=== PATIENT | male | born 1935 | race Hispanic/Latino ===

== ENCOUNTER 2016-12-02 09:46 | Inpatient (IN) | payer MEDICARE ==
[2016-12-02] MEDS ORDERED: DILAUDID IV ONE (10:23)
[2016-12-02] MEDS ORDERED: ZOFRAN IV ONE (10:23)
--- NOTE | 2016-12-02 11:20 | XRay Report ---
RIGHT HIP RADIOGRAPHS: INDICATION: Right hip pain. COMPARISON: None similar. FINDINGS: AP pelvic and attempted frog-leg projections of the right hip demonstrate right lesser trochanter fracture avulsion, displaced medially by approximately 1.5 cm. A nondisplaced right intertrochanteric fracture also noted. Osteopenia/osteoporosis. Femoral heads though well-located within the acetabulum bilaterally. Remainder pelvic articulation intact as also imaged lower lumbar spine. Nonobstructive bowel gas pattern. Few atherosclerotic calcifications. EKG lead. CONCLUSION: Acute right hip intertrochanteric fracture with mildly displaced and possibly comminuted lesser trochanteric fracture, as described above. Thank you for the opportunity to participate in this patient's care.
[2016-12-02 11:37] LABS: Basophils % (Auto) 0.6 % (0.0-1.8); Eosinophils % (Auto) 1.1 % (0.0-4.3); Hematocrit 39.1 % (35.5-45.6); Mean Corpuscular HGB Conc 33 % (32-34); Mean Corpuscular Hemoglobin 32 pg (28-32); Mean Corpuscular Volume 96 fl (84-94); Platelet Count 184 K/mm3 (140-440); Red Blood Count 4.08 M/mm3 (3.65-5.03); Red Cell Distribution Width 14.5 % (13.2-15.2); White Blood Count 9.7 K/mm3 (4.5-11.0)
[2016-12-02 11:47] LABS: INR 0.97 (0.87-1.13)
[2016-12-02 11:48] LABS: Partial Thromboplastin Time 24.7 Sec. (24.2-36.6)
[2016-12-02 11:50] LABS: BUN/Creatinine Ratio 21.05; Calcium 9.2 mg/dL (8.4-10.2); Chloride 103.9 mmol/L (98-107)
--- NOTE | 2016-12-02 11:57 | Emergency Department Report ---
ED Fall HPI - General Chief Complaint: Fall Stated Complaint: GROUND LEVEL FALL Time Seen by Provider: 12/02/16 10:17 Source: patient, EMS Mode of arrival: Stretcher Limitations: No Limitations - History of Present Illness Initial Comments: 81-year-old male with a past medical history multiple medical problems presents to the hospital status post fall. Patient tripped over his dog and fell. Complains of 10/10 right hip pain worse with palpation and movement. No alleviating factors reported. Accu-Chek 151 in route to the hospital. Patient denies head injury or LOC. - Related Data Home Medications Medication Instructions Recorded Confirmed Last Taken Carvedilol [Coreg] 6.25 mg PO BID 12/02/16 12/02/16 Unknown Isosorb Dinit/Hydralazine HCl 1 each PO DAILY 12/02/16 12/02/16 Unknown [Bidil Tablet] Ranitidine HCl [Acid Reel Man] 150 mg PO DAILY 12/02/16 12/02/16 Unknown Tamsulosin [Flomax] 0.4 mg PO QDAY 12/02/16 12/02/16 Unknown amLODIPine [Norvasc] 1 tab PO DAILY 12/02/16 12/02/16 Unknown Previous Rx's Medication Instructions Recorded Last Taken Type Clopidogrel [Plavix] 75 mg PO QDAY #30 tablet 08/28/16 Unknown Rx Simvastatin [Zocor TAB] 20 mg PO QHS #30 tablet 08/28/16 Unknown Rx glipiZIDE [glipiZIDE ER] 5 mg PO QAM #30 tab.er.24 08/28/16 Unknown Rx predniSONE [Deltasone] 5 mg PO QDAY tablet 08/28/16 Unknown Rx Allergies Allergy/AdvReac Type Severity Reaction Status Date / Time aspirin Allergy Nausea Verified 04/09/15 06:55 morphine Allergy hallucinati Verified 04/09/15 06:57 ons ED Review of Systems ROS: Stated complaint: GROUND LEVEL FALL Other details as noted in HPI Comment: All other systems reviewed and negative Other: Constitutional: No fevers chills Eyes: No eye pain visual changes or discharge ENT: Hard of hearing Neck: Denies pain Respiratory: Denies cough wheezing shortness of breath Cardiovascular: Denies chest pain, palpitations, syncope GI: Denies abdominal pain, nausea, vomiting, diarrhea : Denies dysuria Musculoskeletal: Per HPI Skin: Denies rash, lesions, erythema Neurologic: Chronic CVA deficit Psychiatric: Denies suicidal ideation, hallucinations ED Past Medical Hx - Past Medical History Previous Medical History?: Yes Hx Hypertension: Yes Hx CVA: Yes Hx Heart Attack/AMI: Yes Hx Diabetes: Yes Hx GERD: Yes Hx Renal Disease: Yes (stage 2 CKD) Hx Arthritis: Yes Hx COPD: Yes - Surgical History Past Surgical History?: Yes Hx Appendectomy: Yes (at age 16) - Social History Smoking Status: Former Smoker Substance Use Type: Prescribed - Medications Home Medications: Home Medications Medication Instructions Recorded Confirmed Last Taken Type Clopidogrel [Plavix] 75 mg PO QDAY #30 tablet 08/28/16 12/02/16 Unknown Rx Simvastatin [Zocor TAB] 20 mg PO QHS #30 tablet 08/28/16 12/02/16 Unknown Rx glipiZIDE [glipiZIDE ER] 5 mg PO QAM #30 tab.er.24 08/28/16 12/02/16 Unknown Rx predniSONE [Deltasone] 5 mg PO QDAY tablet 08/28/16 12/02/16 Unknown Rx Carvedilol [Coreg] 6.25 mg PO BID 12/02/16 12/02/16 Unknown History Isosorb Dinit/Hydralazine HCl 1 each PO DAILY 12/02/16 12/02/16 Unknown History [Bidil Tablet] Ranitidine HCl [Acid Reel Man] 150 mg PO DAILY 12/02/16 12/02/16 Unknown History Tamsulosin [Flomax] 0.4 mg PO QDAY 12/02/16 12/02/16 Unknown History amLODIPine [Norvasc] 1 tab PO DAILY 12/02/16 12/02/16 Unknown History ED Physical Exam - General Limitations: Physical Limitation - Other Other exam information: General: No limitations, patient is alert in no acute distress Head exam: Atraumatic, normocephalic Eyes exam: Normal appearance ENT: Moist mucous membrane, normal oropharynx Neck exam: Normal inspection, full range of motion Respiratory exam: Clear to auscultation bilateral, no wheezes, rales, crackles Cardiovascular: Normal rate and rhythm, normal heart sounds Abdomen: Soft, nondistended, and nontender, with normal bowel sounds, no rebound, or guarding Extremity: Right leg shortened and tender at the hip. 2+ DP pulse Back: Normal Inspection, full range of motion, no tenderness Neurologic: Alert, oriented x3, now slurred speech. Psychiatric: normal affect, normal mood Skin: Warm, dry, intact ED Course Vital Signs 12/02/16 12/02/16 12/02/16 09:53 10:01 10:03 Temperature 98.5 F Pulse Rate 65 60 Respiratory 21 20 Rate Blood Pressure 147/59 124/58 Blood Pressure [Left] O2 Sat by Pulse 97 96 95 Oximetry 12/02/16 12/02/16 12/02/16 10:30 10:33 10:34 Temperature Pulse Rate 63 60 Respiratory 15 20 16 Rate Blood Pressure Blood Pressure [Left] O2 Sat by Pulse 94 95 Oximetry 12/02/16 12/02/16 12/02/16 11:01 11:03 12:01 Temperature Pulse Rate 64 63 Respiratory 12 16 14 Rate Blood Pressure 149/68 128/63 Blood Pressure [Left] O2 Sat by Pulse 99 98 Oximetry 12/02/16 12:47 Temperature 98.5 F Pulse Rate 63 Respiratory 14 Rate Blood Pressure Blood Pressure 120/63 [Left] O2 Sat by Pulse 98 Oximetry - Reevaluation(s) Reevaluation #1: 12/02/16 12:38 Pain improved after Dilaudid and Zofran. - Consultations Consultation #1: 12/02/16 12:[address] Fenton (ortho) will be placed still scheduled for Wednesday12/02/16 12:13 ED Medical Decision Making - Lab Data Result diagrams: 12/02/16 11:24 12/02/16 11:24 Lab Results 12/02/16 12/02/16 12/02/16 Range/Units 11:24 11:24 11:24 WBC 9.7 (4.5-11.0) K/mm3 RBC 4.08 (3.65-5.03) M/mm3 Hgb 13.0 (11.8-15.2) gm/dl Hct 39.1 (35.5-45.6) % MCV 96 H (84-94) fl MCH 32 (28-32) pg MCHC 33 (32-34) % RDW 14.5 (13.2-15.2) % Plt Count 184 (140-440) K/mm3 Lymph % (Auto) 23.2 (13.4-35.0) % [place] % (Auto) 6.2 (0.0-7.3) % Eos % (Auto) 1.1 (0.0-4.3) % Baso % (Auto) 0.6 (0.0-1.8) % Lymph # 2.2 (1.2-5.4) K/mm3 [place] # 0.6 (0.0-0.8) K/mm3 Eos # 0.1 (0.0-0.4) K/mm3 Baso # 0.1 (0.0-0.1) K/mm3 Seg Neutrophils % 68.9 (40.0-70.0) % Seg Neutrophils # 6.7 (1.8-7.7) K/mm3 PT 12.8 (12.2-14.9) Sec. INR 0.97 (0.87-1.13) APTT 24.7 (24.2-36.6) Sec. Sodium 145 (137-145) mmol/L Potassium 6.0 H (3.6-5.0) mmol/L Chloride 103.9 (98-107) mmol/L Carbon Dioxide 30 (22-30) mmol/L Anion Gap 17 mmol/L BUN 40 H (9-20) mg/dL Creatinine 1.9 H (0.8-1.5) mg/dL Estimated GFR 34 ml/min BUN/Creatinine Ratio 21.05 % Glucose 151 H (75-100) mg/dL Calcium 9.2 (8.4-10.2) mg/dL - EKG Data -: EKG Interpreted by Me (nsr 72, bifasciular block, rbb, lpfb) - Radiology Data Radiology results: report reviewed (right hip x-ray: Right intertrochanteric fracture) - Medical Decision Making Cocktail provided for hyperkalemia. Orthopedic and admitting physician and informed - Differential Diagnosis fracture, contusion, sprain Critical Care Time: No Critical care attestation.: If time is entered above; I have spent that time in minutes in the direct care of this critically ill patient, excluding procedure time. ED Disposition Clinical Impression: Hyperkalemia Closed right hip fracture Qualifiers: Encounter type: initial encounter Qualified Code(s): S72.001A - Fracture of unspecified part of neck of right femur, initial encounter for closed fracture Chronic kidney disease Qualifiers: Chronic kidney disease stage: unspecified stage Qualified Code(s): N18.9 - Chronic kidney disease, unspecified Disposition: OP ADMITTED IP TO THIS HOSP Is pt being admited?: Yes Condition: Stable Time of Disposition: 12:20 (Dr egan/hosp)
[2016-12-02] MEDS ORDERED: D50W (25GM) IV ONE (12:01)
[2016-12-02] MEDS ORDERED: SODIUM BICARBONATE IV ONE ×2 (12:01→13:00)
[2016-12-02] MEDS ORDERED: KIONEX PO ONE (12:01)
[2016-12-02] MEDS ORDERED: PROVENTIL IH ONE (12:02)
[2016-12-02] MEDS ORDERED: NACL 0.9% 1000 ML 1,000 ML IV ONE (12:02)
[2016-12-02] MEDS ORDERED: LASIX IV ONE (12:02)
--- NOTE | 2016-12-02 12:34 | Admit Criteria Form ---
Admission Criteria Documentation: MUSCULOSKELETAL DISEASE GRG Clinical Indications for Admission to Inpatient Care (Place 'X' for any and all applicable criteria): Hospital admission is needed for appropriate care of the patient because of ANY ONE of the following: [X ]I. Fracture, dislocation, or other musculoskeletal injury requiring inpatient care(medical) as indicated by ANY ONE of the following(4)(5)(6)(7) [ ]a) Vertebral fracture requiring observation for instability or neurologic compromise (8) [ ]b) Compartment syndrome (proven or cannot be ruled out during observation level of care) (9) [ ]c) Limb-threatening injury [ ]d) Major injury requiring inpatient stabilization such as traction initiation or external fixation before internal fixation or closure of complex or open fracture [ X]e) Major injury requiring inpatient treatment after emergency or observation level care (as appropriate) [ ]f) Severe pain requiring acute inpatient management [ ]II. Newly diagnosed or suspected bone, joint, or orthopedic device infection (e.g., osteomyelitis, septic arthritis) needing ANY ONE of the following(1)(2)(3) [ ]a) IV antibiotics that cannot be initiated in other than inpatient setting (e.g., patient too unstable or home infusion not available) [ ]b) Device removal or replacement [ ]c) Bone or soft tissue debridement [ ]d) Joint drainage (drain placement or repetitive aspirations) [ ]III. Severe rheumatologic disease (e.g., systemic lupus erythematosus, rheumatoid arthritis) with complications or comorbidities (Also use Optimal Recovery Care Criteria or General Recovery Criteria as appropriate on the basis of predominant condition), including ANY ONE of the following(10 )(11)(12)(13) [ ]a) Severe infection (e.g., NURSE CASE MANAGEMENT infection, sepsis) (14) [ ]b) Respiratory complications, including ANY ONE of the following: [ ]i) Pleural effusion with respiratory compromise [ ]ii) Pulmonary hypertension with congestive failure [ ]iii) Respiratory failure [ ]iv) Pulmonary hemorrhage (15) [ ]c) Hematologic disease, including ANY ONE of the following: [ ]i) Coagulopathy with bleeding [ ]ii) Thrombosis with hypercoagulable state [ ]iii) Thrombotic thrombocytopenic purpura [ ]d) Cerebritis with seizures, psychosis, or other severe abnormalities [ ]e) Vertebral destruction with monitoring needed for cervical myelopathy& possible respiratory compromise [ ]f) Exacerbation that requires inpatient treatment (e.g., intravenous immunosuppression) (16) [ ]g) Acute renal failure [ ]IV. Severe vasculitis with complications or comorbidities (Also use Optimal Recovery Care Criteria or General Recovery Criteria as appropriate on the basis of predominant condition), including ANY ONE of the following(11)(12)(17)(18)(19)(20) [ ]a) NURSE CASE MANAGEMENT vasculitis with seizures, psychosis, or other severe abnormalities (22) [ ]b) Renal failure (16) [ ]c) Pulmonary hemorrhage (15) [ ]d) Cerebral infarction [ ]e) Gastrointestinal ischemia [ ]f) Gangrene or threatened amputation [ ]g) Exacerbation that requires inpatient treatment (e.g., intravenous immunosuppression) (19)(21) [ ]V. Severe myopathy as indicated by ANY ONE of the following (28)(29) [ ]a) New onset of airway compromise or inability to swallow [ ]b) Respiratory deterioration with observation needed for impending respiratory failure [ ]c) Exacerbation that requires inpatient treatment (e.g., intravenous immunosuppression) [ ]. Severe gout (crystal arthropathy) as indicated by ANY ONE of the following (23)(24) [ ]a) Severe pain requiring acute inpatient management [ ]b) Exacerbation that requires inpatient treatment (e.g., intravenous treatment) [ ]VII.Rhabdomyolysis and ANY ONE of the following (25)(26)(27) [ ]a) Acute renal failure [ ]b) Need for intravenous hydration after emergency or observation level care (as appropriate) [ ]c) Inability to maintain oral hydration [ ]d) Change in mental status [ ]e) Electrolyte abnormality that remains after emergency or observation level care (as appropriate) [ ]VIII Post amputation complication, as indicated by ANY ONE of the following [ ]a) Infection [ ]b) Dehiscence [ ]c) Myodesis failure [ ]IX. Severe pain requiring acute inpatient management as indicated by ALL of the following (30)(31)(32) [ ]a) Continuous or frequent (e.g., every 2 to 4 hrs) parenteral analgesics required [A] [ ]b) Rapid improvement expected from treatment or acute intervention ( e.g., surgery, anesthesia procedure[B] [ ]X. Musculoskeletal Disease and ALL of the following: [ ]a) Symptom or finding for which emergency and observation care have failed or are not considered appropriate (Use General Criteria: Observation Care as appropriate) [ ]b) Presence of ANY ONE of the following [ ]i) A General Admission Criteria [ ]ii) A Pediatric General Admission Criteria The original [facility] content created by [facility] has been revised. The portions of the content which have been revised are identified through the use of italic text or in bold, and [facility] has neither reviewed nor approved the modified material. All other unmodified content is copyright [facility]. Please see references footnoted in the original [facility] edition 2016 Admission Criteria Met: Yes
[2016-12-02] MEDS ORDERED: CALCIUM GLUCONATE 1,000 MG in NACL 0.9% 100 ML IV ONE (13:01)
[2016-12-02] MEDS ORDERED: ZOFRAN IV PRN ×2 (13:10→13:12)
[2016-12-02] MEDS ORDERED: TYLENOL PO PRN (13:10)
[2016-12-02] MEDS ORDERED: MILK OF MAGNESIA PO PRN (13:10)
[2016-12-02] MEDS ORDERED: DULCOLAX PR PRN (13:10)
[2016-12-02] MEDS ORDERED: NON-FORMULARY (Ranitidine Hcl [Acid Reducer] 150 MG) PO SCH (13:15)
--- NOTE | 2016-12-02 13:35 | Event Note ---
Date: 12/02/16 See H/p in reports Rt hip Fx T2DM HTN CAD BPH Obesity
--- NOTE | 2016-12-02 14:19 | History and Physical Report ---
CHIEF COMPLAINT: Ground level fall and severe right hip pain this morning. HISTORY OF PRESENT ILLNESS: An 81-year-old male, obese, with history of hypertension, noninsulin dependent diabetes, BPH, gastroesophageal reflux disease, coronary artery disease, comes to the ER for fall. The patient apparently tripped over his dog and fell down and complains of 10/10 pain in the right hip, especially more with even slight movement. Denies any head injury or loss of consciousness. No syncope. No chest pain. PAST MEDICAL HISTORY: Significant for hypertension, coronary artery disease, gastroesophageal reflux disease, BPH, hypertension, type 2 diabetes. CURRENT MEDICATIONS: Coreg 6.25 b.i.d., BiDil 1 tablet daily, ranitidine 150 mg p.o. b.i.d., Flomax 0.4 p.o. daily, amlodipine 10 mg p.o. daily, Plavix 75 mg p.o. daily, simvastatin 20 mg p.o. daily, glipizide 5 mg p.o. daily, prednisone 5 mg p.o. daily. ADDITIONAL PAST MEDICAL HISTORY: Cerebrovascular accident, arthritis, COPD, and chronic kidney disease. PAST SURGICAL HISTORY: Appendectomy. SOCIAL HISTORY: Former smoker, stopped smoking a couple of years ago. REVIEW OF SYSTEMS: Significant for severe right hip pain, especially with even slight movement, pain is like 10/10 and decreased range of motion. Otherwise, review of systems is essentially negative. A 14-point review of systems done. PHYSICAL EXAMINATION: GENERAL: Elderly male lying in bed, in slight pain. VITAL SIGNS: Temperature is 98.5, pulse is 65, respirations are 21, blood pressure is 147/59, and sats are 97%. HEENT: Unremarkable. Pupils equal and reactive. NECK: Supple, no lymphadenopathy, no thyromegaly. LUNGS: Clear to auscultation and percussion. Good air entry. CARDIOVASCULAR: S1, S2 heard. No gallop, no murmur, no rub. Apical impulse in left fifth intercostal space and midclavicular line. ABDOMEN: Soft and benign. No hepatosplenomegaly. No guarding, no rigidity. Hernial orifices are normal. EXTREMITIES: Good pedal pulses. No pedal edema. Decreased range of motion of the right hip. Abducted and externally rotated. CENTRAL NERVOUS SYSTEM: Alert and oriented x 4, nonfocal exam. LABORATORY DATA: White count is 9700, hemoglobin is 13, hematocrit is 39.1, platelet count is 184,000. Sodium is 145, potassium is 6.0, bicarbonate is 30, BUN and creatinine is 40 and 1.9, glucose is 151, calcium is 9.2. Hip x-ray shows a right intertrochanteric fracture. EKG: There is a rhythm strip showing normal sinus rhythm, with heart rate of about 75 per minute. ASSESSMENT AND PLAN: 1. Closed right hip fracture, needs open reduction and internal fixation. Dr. Morales consulted. We will do the surgery once cleared on Wednesday, which is 12/04/2016. 2. Hypertension. Continue Coreg 6.25 q. 12 and also amlodipine 5 mg p.o. daily. 3. Hyperlipidemia. Continue simvastatin 20 mg p.o. daily, we will hold for the time being. 4. Coronary artery disease. We will hold the Plavix because of the impending surgery. 5. Type 2 diabetes. We will hold the glipizide, but do coverage. The patient will be n.p.o. from midnight tomorrow. 6. Gastroesophageal reflux disease. Continue ranitidine 150 p.o. b.i.d. 7. Benign prostatic hypertrophy. Continue tamsulosin 0.4 mg p.o. daily. 8. Deep venous thrombosis prophylaxis, Lovenox 40 mg subcutaneous daily. 9. Hyperkalemia, treated in the ER. We will recheck the potassium. The patient was given hyperkalemia cocktail. JOB# [id number] KERRY/NTS
[2016-12-02] MEDS: DILAUDID IV PRN ×2 (14:26→19:21)
--- NOTE | 2016-12-02 17:00 | Consultation ---
History of Present Illness - HPI Consult date: 12/02/16 Consult reason: fracture (Intertrochanteric fracture hip) Medications and Allergies Allergies Allergy/AdvReac Type Severity Reaction Status Date / Time aspirin Allergy Nausea Verified 04/09/15 06:55 morphine Allergy hallucinati Verified 04/09/15 06:57 ons Home Medications Medication Instructions Recorded Confirmed Last Taken Type Clopidogrel [Plavix] 75 mg PO QDAY #30 tablet 08/28/16 12/02/16 Unknown Rx Simvastatin [Zocor TAB] 20 mg PO QHS #30 tablet 08/28/16 12/02/16 Unknown Rx glipiZIDE [glipiZIDE ER] 5 mg PO QAM #30 tab.er.24 08/28/16 12/02/16 Unknown Rx predniSONE [Deltasone] 5 mg PO QDAY tablet 08/28/16 12/02/16 Unknown Rx Carvedilol [Coreg] 6.25 mg PO BID 12/02/16 12/02/16 Unknown History Isosorb Dinit/Hydralazine HCl 1 each PO DAILY 12/02/16 12/02/16 Unknown History [Bidil Tablet] Ranitidine HCl [Acid Pharmacy Specialist] 150 mg PO DAILY 12/02/16 12/02/16 Unknown History Tamsulosin [Flomax] 0.4 mg PO QDAY 12/02/16 12/02/16 Unknown History amLODIPine [Norvasc] 1 tab PO DAILY 12/02/16 12/02/16 Unknown History Active Meds: Active Medications Acetaminophen (Tylenol) 650 mg PO Q4H PRN PRN Reason: Pain MILD(1-3)/Fever >100.5/CURIEL Amlodipine Besylate (Norvasc) 5 mg PO DAILY HIPOLITO Bisacodyl (Dulcolax) 10 mg MN QDAY PRN PRN Reason: Constipation unrelieved by MOM Carvedilol (Coreg) 6.25 mg PO BID HIPOLITO Enoxaparin Sodium (Lovenox) 40 mg SUB-Q QDAY@2200 [facility] Famotidine (Pepcid) 20 mg PO DAILY HIPOLITO Hydromorphone HCl (Dilaudid) 1 mg IV Q3H PRN PRN Reason: Pain , Severe (7-10) Last Admin: 12/02/16 14:26 Dose: 1 mg Sodium Chloride (Nacl 0.45% 1000 Ml) 1,000 mls @ 75 mls/hr IV DIRECT [facility] Stop: 12/03/16 13:00 Insulin Aspart (Novolog) 0 units SUB-Q ACHS [facility] PRN Reason: Protocol Isosorbide Dinitrate/Hydralazine (Bidil 20/37.5mg) 1 each PO DAILY HIPOLITO Magnesium Hydroxide (Milk Of Magnesia) 30 ml PO Q4H PRN PRN Reason: Constipation Ondansetron HCl (Zofran) 4 mg IV Q3H PRN PRN Reason: Nausea And Vomiting Prednisone (Deltasone) 5 mg PO QDAY [facility] Tamsulosin HCl (Flomax) 0.4 mg PO QDAY [facility] Assessment and Plan 81-year-old male with a past medical history multiple medical problems presents to the hospital status post fall. Patient tripped over his dog and fell. Complains of 10/10 right hip pain worse with palpation and movement. Examination at bedside shows pain with left hip motion shortening, external rotation Rx 3 part intertroch fx. Plan ORIF once stable. Plan ORIF Wednesday. - Patient Problems (1) Closed right hip fracture Current Visit: Yes Status: Acute Qualifiers: Encounter type: initial encounter Qualified Code(s): S72.001A - Fracture of unspecified part of neck of right femur, initial encounter for closed fracture (2) Hyperkalemia Current Visit: Yes Status: Acute (3) Chronic kidney disease Current Visit: Yes Status: Chronic Qualifiers: Chronic kidney disease stage: unspecified stage Qualified Code(s): N18.9 - Chronic kidney disease, unspecified (4) Abnormality of gait following cerebrovascular accident (CVA) Current Visit: No Status: Acute
[2016-12-02] MEDS: NOVOLOG SUB-Q SCH ×2 (17:30→22:13)
[2016-12-02] MEDS: NORVASC PO SCH (17:31)
[2016-12-02] MEDS: COREG PO SCH ×2 (17:31→22:13)
[2016-12-02] MEDS: BIDIL 20/37.5MG PO SCH (18:30)
[2016-12-02] MEDS: PEPCID PO SCH (18:30)
[2016-12-02] MEDS: FLOMAX PO SCH (18:30)
[2016-12-02] MEDS: NACL 0.45% 1000 ML 1,000 ML IV SCH (18:30)
[2016-12-02] MEDS ORDERED: LOVENOX SUB-Q SCH (22:00)
[2016-12-03] MEDS: DILAUDID IV PRN ×3 (00:13→11:51)
[2016-12-03 05:21] LABS: Basophils % (Auto) 0.3 % (0.0-1.8); Eosinophils % (Auto) 0.3 % (0.0-4.3); Hematocrit 33.3 % (35.5-45.6); Hemoglobin 10.9 gm/dl (11.8-15.2); Mean Corpuscular HGB Conc 33 % (32-34); Mean Corpuscular Hemoglobin 32 pg (28-32); Mean Corpuscular Volume 96 fl (84-94); Platelet Count 161 K/mm3 (140-440); Red Blood Count 3.46 M/mm3 (3.65-5.03); Red Cell Distribution Width 14.5 % (13.2-15.2); White Blood Count 12.9 K/mm3 (4.5-11.0)
[2016-12-03 05:40] LABS: Albumin 3.4 g/dL (3.9-5); Albumin/Globulin Ratio 1.4 %; BUN/Creatinine Ratio 14.51; Bilirubin,Total 0.4 mg/dL (0.1-1.2); Calcium 8.3 mg/dL (8.4-10.2); Chloride 103.4 mmol/L (98-107); Potassium 5.4 mmol/L (3.6-5.0); Total Protein 5.9 g/dL (6.3-8.2)
--- NOTE | 2016-12-03 07:58 | Progress Note ---
Assessment and Plan Assessment and plan: Closed right hip fracture * Orthopedics consulted, follow recommendation * Planned for surgery on Wednesday Hypertension, benign essential * Continue Coreg and monitor BP closely Hyperlipidemia * Continue statin Coronary artery disease * Continue Plavix, Coreg and statin Diabetes mellitus type 2 * Continue sliding scale of insulin History of BPH * Continue home meds (tamsulosin) Hyperkalemia likely due to declining renal function * Improved today, we'll continue Kayexalate when necessary for potassium level more than 5.2 * We'll give calcium gluconate and bicarbonate Acute kidney injury on CKD * likely due to dehydration/vasomotor nephropathy * Creatinine level increased today * Continue IV fluid hydration, get a renal ultrasound, nephrology consult Altered mental status/ encephalopathy * Etiology unknown at this point * Cannot rule out underlying CVA * We'll get MRI of the brain without contrast for possible acute CVA * We'll continue Plavix and statin for now History of GERD * Continue PPI History Interval history: Patient seen and examined. Medical records and medication list reviewed. No acute event overnight noted by the RN. Patient appears to be confused but able to follow simple commands. His daughter and was at bedside. Patient had a history of stroke back in July 2016. He is continue to complaining of left hip pain. Renal function worse today. Family also stated that he does have history of chronic kidney disease stage III Discussed plan of care at bedside with patient. Hospitalist Physical - Physical exam Narrative exam: GENERAL: Elderly male lying on bed appeared to be in mild discomfort. HEENT: Normocephalic. Atraumatic. No conjunctival congestion or icterus. Patient has moist mucous membranes. NECK: Supple. Trachea midline. CHEST/LUNGS: Clear to auscultated bilaterally, breathing nonlabored. No wheezes crackles or rhonchi. HEART/CARDIOVASCULAR: Regular in rate and rhythm. S1 and S2 positive. ABDOMEN: Abdomen is soft, nontender. Patient has normal bowel sounds. SKIN: There is no rash. Warm and dry. NEURO: Follows simple command. but confused. MUSCULOSKELETAL: pain with left hip motion and external rotation, shortening of the left lower extremity EXTRIMITY: No edema, no cyanosis or clubbing. PSYCH: confused, does not answer questions. - Constitutional Vitals: Temp Pulse Resp BP Pulse Ox 98.2 F 81 18 113/66 97 12/03/16 07:38 12/03/16 07:38 12/03/16 07:38 12/03/16 07:38 12/03/16 07:38 Results - Labs CBC & Chem 7: 12/04/16 06:26 12/04/16 06:26 Labs: Laboratory Last Values WBC 12.9 K/mm3 (4.5-11.0) H 12/03/16 04:49 RBC 3.46 M/mm3 (3.65-5.03) L 12/03/16 04:49 Hgb 10.9 gm/dl (11.8-15.2) L 12/03/16 04:49 Hct 33.3 % (35.5-45.6) L 12/03/16 04:49 MCV 96 fl (84-94) H 12/03/16 04:49 MCH 32 pg (28-32) 12/03/16 04:49 MCHC 33 % (32-34) 12/03/16 04:49 RDW 14.5 % (13.2-15.2) 12/03/16 04:49 Plt Count 161 K/mm3 (140-440) 12/03/16 04:49 Lymph % (Auto) 13.9 % (13.4-35.0) 12/03/16 04:49 [place] % (Auto) 10.6 % (0.0-7.3) H 12/03/16 04:49 Eos % (Auto) 0.3 % (0.0-4.3) 12/03/16 04:49 Baso % (Auto) 0.3 % (0.0-1.8) 12/03/16 04:49 Lymph # 1.8 K/mm3 (1.2-5.4) 12/03/16 04:49 [place] # 1.4 K/mm3 (0.0-0.8) H 12/03/16 04:49 Eos # 0.0 K/mm3 (0.0-0.4) 12/03/16 04:49 Baso # 0.0 K/mm3 (0.0-0.1) 12/03/16 04:49 Seg Neutrophils % 74.9 % (40.0-70.0) H 12/03/16 04:49 Seg Neutrophils # 9.6 K/mm3 (1.8-7.7) H 12/03/16 04:49 PT 12.8 Sec. (12.2-14.9) 12/02/16 11:24 INR 0.97 (0.87-1.13) 12/02/16 11:24 APTT 24.7 Sec. (24.2-36.6) 12/02/16 11:24 Sodium 144 mmol/L (137-145) 12/03/16 04:49 Potassium 5.4 mmol/L (3.6-5.0) H 12/03/16 04:49 Chloride 103.4 mmol/L (98-107) 12/03/16 04:49 Carbon Dioxide 27 mmol/L (22-30) 12/03/16 04:49 Anion Gap 19 mmol/L 12/03/16 04:49 BUN 45 mg/dL (9-20) H 12/03/16 04:49 Creatinine 3.1 mg/dL (0.8-1.5) H D 12/03/16 04:49 Estimated GFR 19 ml/min 12/03/16 04:49 BUN/Creatinine Ratio 14.51 % 12/03/16 04:49 Glucose 136 mg/dL (75-100) H 12/03/16 04:49 POC Glucose 144 (70-105) H 12/03/16 06:00 Calcium 8.3 mg/dL (8.4-10.2) L 12/03/16 04:49 Total Bilirubin 0.4 mg/dL (0.1-1.2) 12/03/16 04:49 AST 14 units/L (5-40) 12/03/16 04:49 ALT 11 units/L (7-56) 12/03/16 04:49 Alkaline Phosphatase 47 units/L (35-129) 12/03/16 04:49 Total Protein 5.9 g/dL (6.3-8.2) L 12/03/16 04:49 Albumin 3.4 g/dL (3.9-5) L 12/03/16 04:49 Albumin/Globulin Ratio 1.4 % 12/03/16 04:49
[2016-12-03] MEDS ORDERED: KIONEX PO PRN ×2 (08:00→12:00)
[2016-12-03] MEDS: NACL 0.45% 1000 ML 1,000 ML IV SCH (08:22)
[2016-12-03] MEDS: NOVOLOG SUB-Q SCH ×3 (08:33→22:00)
[2016-12-03] MEDS ORDERED: KIONEX PO ONE (09:00)
[2016-12-03] MEDS ORDERED: LOVENOX SUB-Q SCH (10:00)
--- NOTE | 2016-12-03 10:00 | Consultation ---
History of Present Illness - Reason for Consult Consult date: 12/03/16 acute renal failure, chronic renal failure, hyperkalemia - History of Present Illness Patient is a 81 yo WM with history significant for DM type 2, HTN, CKD stage 3, CVA with right hemiparesis, dysarthria, CAD, COPD and dilated cardiomyopathy was brought into ER after he sustained a fall. Unable to obtain any history from patient. He was found to have right hip fracture, Acute kidney Injury and Hyperkalemia. His K level was 6 yesterday and improved to 5.4 today. Creatinine went upto 3.1 today. Past History Past Medical History: acute AR, COPD, diabetes, heart failure, hypertension, hyperlipidemia, renal failure, stroke Medications and Allergies Allergies Allergy/AdvReac Type Severity Reaction Status Date / Time aspirin Allergy Nausea Verified 04/09/15 06:55 morphine Allergy hallucinati Verified 04/09/15 06:57 ons Home Medications Medication Instructions Recorded Confirmed Last Taken Type Clopidogrel [Plavix] 75 mg PO QDAY #30 tablet 08/28/16 12/02/16 Unknown Rx Simvastatin [Zocor TAB] 20 mg PO QHS #30 tablet 08/28/16 12/02/16 Unknown Rx glipiZIDE [glipiZIDE ER] 5 mg PO QAM #30 tab.er.24 08/28/16 12/02/16 Unknown Rx predniSONE [Deltasone] 5 mg PO QDAY tablet 08/28/16 12/02/16 Unknown Rx Carvedilol [Coreg] 6.25 mg PO BID 12/02/16 12/02/16 Unknown History Isosorb Dinit/Hydralazine HCl 1 each PO DAILY 12/02/16 12/02/16 Unknown History [Bidil Tablet] Ranitidine HCl [Acid Swage Toolsetter] 150 mg PO DAILY 12/02/16 12/02/16 Unknown History Tamsulosin [Flomax] 0.4 mg PO QDAY 12/02/16 12/02/16 Unknown History amLODIPine [Norvasc] 1 tab PO DAILY 12/02/16 12/02/16 Unknown History Active Meds: Active Medications Acetaminophen (Tylenol) 650 mg PO Q4H PRN PRN Reason: Pain MILD(1-3)/Fever >100.5/CURIEL Amlodipine Besylate (Norvasc) 5 mg PO DAILY HIPOLITO Last Admin: 12/02/16 17:31 Dose: 5 mg Bisacodyl (Dulcolax) 10 mg DC QDAY PRN PRN Reason: Constipation unrelieved by MOM Carvedilol (Coreg) 6.25 mg PO BID [facility] Last Admin: 12/02/16 22:13 Dose: Not Given Clopidogrel Bisulfate (Plavix) 75 mg PO QDAY [facility] Enoxaparin Sodium (Lovenox) 30 mg SUB-Q QHS [facility] Famotidine (Pepcid) 20 mg PO DAILY [facility] Last Admin: 12/02/16 18:30 Dose: 20 mg Hydromorphone HCl (Dilaudid) 1 mg IV Q3H PRN PRN Reason: Pain , Severe (7-10) Last Admin: 12/03/16 08:13 Dose: 1 mg Sodium Chloride (Nacl 0.45% 1000 Ml) 1,000 mls @ 75 mls/hr IV DIRECT [facility] Stop: 12/03/16 13:00 Last Admin: 12/03/16 08:22 Dose: 75 mls/hr Insulin Aspart (Novolog) 0 units SUB-Q ACHS [facility] PRN Reason: Protocol Last Admin: 12/03/16 08:33 Dose: Not Given Isosorbide Dinitrate/Hydralazine (Bidil 20/37.5mg) 1 each PO DAILY [facility] Last Admin: 12/02/16 18:30 Dose: 1 each Magnesium Hydroxide (Milk Of Magnesia) 30 ml PO Q4H PRN PRN Reason: Constipation Ondansetron HCl (Zofran) 4 mg IV Q3H PRN PRN Reason: Nausea And Vomiting Prednisone (Deltasone) 5 mg PO QDAY [facility] Simvastatin (Zocor) 20 mg PO QHS [facility] Sodium Polystyrene Sulfonate (Kayexalate) 15 gm PO Q6HR PRN PRN Reason: Hyperkalemia Tamsulosin HCl (Flomax) 0.4 mg PO QDAY [facility] Last Admin: 12/02/16 18:30 Dose: 0.4 mg Review of Systems ROS unobtainable: due to mental status Exam - Vital Signs Vital signs: Vital Signs Pulse Ox 97 12/02/16 09:53 - General Appearance General appearance: well-developed, obese, other (no distress) EENT: mucous membranes dry Neck: Present: trachea midline Respiratory: Clear to Ascultation Heart: regular, S1S2 Gastrointestinal: Present: normoactive bowel sounds, obese. Absent: tenderness , distended Integumentary: no rash, warm and dry Neurologic: other (non-verbal, not following any command, right pupil is dilated ) Musculoskeletal: Present: other (no edema, pain with passive movement of right hip) Psychiatric: other (not following any command) Results - Lab Results 12/03/16 04:49 12/03/16 04:49 Most recent lab results Calcium 8.3 mg/dL (8.4-10.2) L 12/03/16 04:49 - Image Kidney/bladder ultrasound: pending Assessment and Plan - Patient Problems (1) MENDOZA (acute kidney injury) Current Visit: Yes Status: Acute Plan to address problem: Acute Kidney Injury superimposed on CKD stage 3. Etiology is unclear. CK level ordered. Start on IV fluids. (2) Hyperkalemia Current Visit: Yes Status: Acute Plan to address problem: Hyperkalemia in the setting of MENDOZA. K level is improving. (3) Closed right hip fracture Current Visit: Yes Status: Acute Qualifiers: Encounter type: initial encounter Qualified Code(s): S72.001A - Fracture of unspecified part of neck of right femur, initial encounter for closed fracture (4) Dysarthria as late effect of cerebrovascular accident (CVA) Current Visit: No Status: Acute (5) DM type 2 (diabetes mellitus, type 2) Current Visit: Yes Status: Acute
[2016-12-03] MEDS: BIDIL 20/37.5MG PO SCH (11:47)
[2016-12-03] MEDS: COREG PO SCH ×2 (11:48→22:00)
[2016-12-03] MEDS: NORVASC PO SCH (11:48)
[2016-12-03] MEDS: PEPCID PO SCH (11:50)
[2016-12-03] MEDS: FLOMAX PO SCH (11:50)
[2016-12-03] MEDS: PLAVIX PO SCH (12:03)
[2016-12-03 18:08] LABS: ISTAT Base Excess 1; ISTAT HCO3 28.9; ISTAT PCO2 75.6 (35-45); ISTAT PH 7.191 (7.35-7.45); ISTAT PO2 84 (80-105); ISTAT SO2 93; ISTAT TCO2 31
--- NOTE | 2016-12-03 18:42 | Anesthesia Consultation ---
Anesthesia Consult and Med Hx Date of service: 12/04/16 - Airway Anesthetic Teeth Evaluation: Edentulous ROM Head & Neck: Adequate Mental/Hyoid Distance: Adequate Mallampati Class: Class II Intubation Access Assessment: Good - Pre-Operative Health Status ASA Pre-Surgery Classification: ASA4 - Pre-Anesthesia Comment Pre-Anesthesia Comments: Patient had stroke in July,. Family admits to no residual deficits. Had MT "many years ago." Is blind in left eye. Hard of hearing. has power of admitted attorneys. He is currently dealing with an irregular heartbeat and shortness of breath, at the time of consultation. Previous anesthesia "had difficulty waking up" after cholecystectomy. - Pulmonary Hx Smoking: Yes COPD: Yes - Cardiovascular System Hx Hypertension: Yes Hx Heart Attack/AMI: Yes Hx Angina: No Hx Peripheral Vascular Disease: Yes - Central Nervous System CVA: Yes (CVA RIGHT SIDE WEAKNESS) Hx Psychiatric Problems: No - Gastrointestinal Hx Ulcer: Yes - Endocrine Hx Renal Disease: Yes (stage 2 CKD) Hx End Stage Renal Disease: No - Other Systems Hx Cancer: Yes
[2016-12-03 18:58] LABS: BUN/Creatinine Ratio 14.05; Calcium 8.1 mg/dL (8.4-10.2); Chloride 103.4 mmol/L (98-107); Potassium 4.9 mmol/L (3.6-5.0)
[2016-12-03] MEDS ORDERED: DUONEB 0.5 MG-3 MG/3 ML SOLN IH PRN (20:58)
[2016-12-03] MEDS: DUONEB 0.5 MG-3 MG/3 ML SOLN IH SCH (21:09)
[2016-12-03] MEDS: LOVENOX SUB-Q SCH (22:00)
[2016-12-03] MEDS: ZOCOR PO SCH (22:00)
[2016-12-03 22:02] LABS: ISTAT Base Excess -1; ISTAT HCO3 26.5; ISTAT PCO2 59.2 (35-45); ISTAT PH 7.259 (7.35-7.45); ISTAT PO2 62 (80-105); ISTAT SO2 87; ISTAT TCO2 28
[2016-12-03] MEDS: PERCOCET 5/325 PO PRN (22:22)
[2016-12-03] MEDS: NACL 0.9% 1000 ML 1,000 ML IV SCH (22:26)
[2016-12-04] MEDS ORDERED: ceFAZolin 2 GM in NACL 0.9% 100 ML IV ONE (00:01)
[2016-12-04] MEDS: ATIVAN IV PRN ×2 (00:39→23:37)
[2016-12-04] MEDS: DUONEB 0.5 MG-3 MG/3 ML SOLN IH SCH ×4 (02:36→21:44)
[2016-12-04 07:10] LABS: Basophils % (Auto) 0.3 % (0.0-1.8); Eosinophils % (Auto) 0.5 % (0.0-4.3); Hematocrit 29.4 % (35.5-45.6); Hemoglobin 9.9 gm/dl (11.8-15.2); Mean Corpuscular HGB Conc 34 % (32-34); Mean Corpuscular Hemoglobin 32 pg (28-32); Mean Corpuscular Volume 96 fl (84-94); Platelet Count 128 K/mm3 (140-440); Red Blood Count 3.07 M/mm3 (3.65-5.03); Red Cell Distribution Width 14.1 % (13.2-15.2); White Blood Count 10.5 K/mm3 (4.5-11.0)
[2016-12-04 07:11] LABS: BUN/Creatinine Ratio 16.38; Calcium 7.9 mg/dL (8.4-10.2); Chloride 104.5 mmol/L (98-107); Potassium 3.9 mmol/L (3.6-5.0)
[2016-12-04] MEDS: NOVOLOG SUB-Q SCH ×2 (08:35→22:36)
[2016-12-04 08:41] LABS: Bacteria,Urine 1+ /HPF (Negative); Bilirubin,Urine NEG (Negative); Blood,Urine SM (Negative); Ketones,Urine NEG (Negative); Leukocyte Esterase,Urine NEG (Negative); Mucus,Urine FEW /HPF; Nitrite,Urine NEG (Negative); Protein,Urine <15 mg/dL mg/dL (Negative); RBC,Urine < 1.0 /HPF (0.0-6.0); Urobilinogen,Urine < 2.0 mg/dL (<2.0)
--- NOTE | 2016-12-04 08:41 | Progress Note ---
Assessment and Plan - Patient Problems (1) MENDOZA (acute kidney injury) Current Visit: Yes Status: Acute Plan to address problem: Acute Kidney Injury superimposed on CKD stage 3, likely secondary to hemodynamic insult. No other obvious etiology for MENDOZA at this time. Creatinine plateaued. CK level is normal. Continue IV fluids. (2) Hyperkalemia Current Visit: Yes Status: Acute Plan to address problem: Improved. (3) Closed right hip fracture Current Visit: Yes Status: Acute Qualifiers: Encounter type: initial encounter Qualified Code(s): S72.001A - Fracture of unspecified part of neck of right femur, initial encounter for closed fracture (4) Dysarthria as late effect of cerebrovascular accident (CVA) Current Visit: No Status: Acute (5) DM type 2 (diabetes mellitus, type 2) Current Visit: Yes Status: Acute Subjective Date of service: 12/04/16 Interval history: Patient is on BIPAP. Objective - Vital Signs Vital signs: Vital Signs - 12hr 12/03/16 12/03/16 12/03/16 21:11 21:17 21:25 Temperature Pulse Rate Pulse Rate [ Left] Pulse Rate [ 83 85 Right] Respiratory Rate Respiratory Rate [Abdomen] Respiratory Rate [Right Hip ] Respiratory 18 21 Rate [Right] Respiratory Rate [Soft Tissue] Blood Pressure Blood Pressure [Left Arm] O2 Sat by Pulse 92 Oximetry 12/03/16 12/04/16 12/04/16 22:00 00:00 02:36 Temperature 97.9 F Pulse Rate 82 Pulse Rate [ 86 Left] Pulse Rate [ 83 Right] Respiratory 20 20 Rate Respiratory 18 Rate [Abdomen] Respiratory 18 Rate [Right Hip ] Respiratory 20 Rate [Right] Respiratory 18 Rate [Soft Tissue] Blood Pressure 123/60 Blood Pressure 130/66 [Left Arm] O2 Sat by Pulse Oximetry 12/04/16 12/04/16 12/04/16 02:37 02:51 04:00 Temperature 97.9 F Pulse Rate 83 Pulse Rate [ 88 Left] Pulse Rate [ 85 Right] Respiratory 20 22 Rate Respiratory Rate [Abdomen] Respiratory Rate [Right Hip ] Respiratory 20 Rate [Right] Respiratory Rate [Soft Tissue] Blood Pressure Blood Pressure 127/60 [Left Arm] O2 Sat by Pulse 94 94 Oximetry 12/04/16 12/04/16 12/04/16 07:47 07:55 07:58 Temperature 98.8 F Pulse Rate 80 Pulse Rate [ 88 Left] Pulse Rate [ 86 Right] Respiratory 18 26 H Rate Respiratory Rate [Abdomen] Respiratory Rate [Right Hip ] Respiratory 16 Rate [Right] Respiratory Rate [Soft Tissue] Blood Pressure Blood Pressure 125/58 [Left Arm] O2 Sat by Pulse 92 99 83 L Oximetry - General Appearance General appearance: well-developed, well-nourished, obese, other (on BIPAP) EENT: other (right pupil dilated) Neck: no carotid bruit, supple Respiratory: Present: Clear to Ascultation, Other (coarse breath sounds) Cardiology: regular, S1S2 Gastrointestinal: normoactive bowel sounds, no tenderness, no distended, obese Integumentary: no rash, warm and dry Musculoskeletal: other (no edema) Psychiatric: cooperative - Lab 12/04/16 06:26 12/04/16 06:26 Most recent lab results Calcium 7.9 mg/dL (8.4-10.2) L 12/04/16 06:26
[2016-12-04] MEDS: BIDIL 20/37.5MG PO SCH (10:21)
[2016-12-04] MEDS: PEPCID PO SCH (10:22)
[2016-12-04] MEDS: PLAVIX PO SCH (10:22)
[2016-12-04] MEDS: FLOMAX PO SCH (10:23)
[2016-12-04] MEDS: COREG PO SCH ×2 (10:23→22:38)
[2016-12-04] MEDS: DELTASONE PO SCH (10:23)
[2016-12-04] MEDS: NORVASC PO SCH (10:24)
--- NOTE | 2016-12-04 11:03 | XRay Report ---
PORTABLE CHEST: An AP portable view of the chest demonstrates a normal cardiac contour considering the limits of this technique. The lungs are clear with no evidence of infiltrate, fluid or failure. No significant change compared to study of January 08, 2015. IMPRESSION: Normal portable chest.
--- NOTE | 2016-12-04 12:25 | Progress Note ---
Assessment and Plan 81-year-old male with a past medical history multiple medical problems presents to the hospital status post fall. Patient tripped over his dog and fell. Complains of 10/10 right hip pain worse with palpation and movement. Examination at bedside shows pain with left hip motion shortening, external rotation Rx 3 part intertroch fx. Plan ORIF once stable. Plan cancelled surgery until mental status determined. will need to stop plavix. - Patient Problems (1) Closed right hip fracture Current Visit: Yes Status: Acute Qualifiers: Encounter type: initial encounter Qualified Code(s): S72.001A - Fracture of unspecified part of neck of right femur, initial encounter for closed fracture (2) Hyperkalemia Current Visit: Yes Status: Acute (3) Chronic kidney disease Current Visit: Yes Status: Chronic Qualifiers: Chronic kidney disease stage: unspecified stage Qualified Code(s): N18.9 - Chronic kidney disease, unspecified (4) Abnormality of gait following cerebrovascular accident (CVA) Current Visit: No Status: Acute Subjective Date of service: 12/04/16 Objective Vital signs: Vital Signs - 12hr 12/04/16 12/04/16 12/04/16 02:36 02:37 02:51 Temperature Pulse Rate 83 Pulse Rate [ Left] Pulse Rate [ 83 85 Right] Respiratory 20 Rate Respiratory 20 20 Rate [Right] Blood Pressure Blood Pressure [Left Arm] O2 Sat by Pulse 94 Oximetry 12/04/16 12/04/16 12/04/16 04:00 07:47 07:55 Temperature 97.9 F 98.8 F Pulse Rate 80 Pulse Rate [ 88 88 Left] Pulse Rate [ 86 Right] Respiratory 22 18 26 H Rate Respiratory 16 Rate [Right] Blood Pressure Blood Pressure 127/60 125/58 [Left Arm] O2 Sat by Pulse 94 92 99 Oximetry 12/04/16 12/04/16 12/04/16 07:58 10:23 10:37 Temperature 98.8 F Pulse Rate 80 Pulse Rate [ Left] Pulse Rate [ Right] Respiratory 26 H Rate Respiratory Rate [Right] Blood Pressure 125/58 125/58 Blood Pressure [Left Arm] O2 Sat by Pulse 83 L 83 L Oximetry 12/04/16 12/04/16 12/04/16 10:50 10:58 11:59 Temperature 98.4 F Pulse Rate 84 Pulse Rate [ 86 Left] Pulse Rate [ Right] Respiratory 20 Rate Respiratory Rate [Right] Blood Pressure Blood Pressure 145/65 [Left Arm] O2 Sat by Pulse 95 95 98 Oximetry - Labs CBC & BMP: 12/04/16 06:26 12/04/16 06:26 Labs: Abnormal lab results 12/03/16 12/03/16 12/03/16 Range/Units 11:49 16:24 16:33 RBC (3.65-5.03) M/mm3 Hgb (11.8-15.2) gm/dl Hct (35.5-45.6) % MCV (84-94) fl Plt Count (140-440) K/mm3 Lymph % (Auto) (13.4-35.0) % [place] % (Auto) (0.0-7.3) % Lymph # (1.2-5.4) K/mm3 [place] # (0.0-0.8) K/mm3 Seg Neutrophils % (40.0-70.0) % Seg Neutrophils # (1.8-7.7) K/mm3 POC ABG pH 7.191 L (7.35-7.45) POC ABG pCO2 75.6 H (35-45) POC ABG pO2 (80-105) Sodium (137-145) mmol/L BUN (9-20) mg/dL Creatinine (0.8-1.5) mg/dL Glucose (75-100) mg/dL POC Glucose 114 H 109 H (70-105) Calcium (8.4-10.2) mg/dL Urine Creatinine (0.1-20.0) mg/dL 12/03/16 12/03/16 12/03/16 Range/Units 17:38 19:42 21:30 RBC (3.65-5.03) M/mm3 Hgb (11.8-15.2) gm/dl Hct (35.5-45.6) % MCV (84-94) fl Plt Count (140-440) K/mm3 Lymph % (Auto) (13.4-35.0) % [place]ke % (Auto) (0.0-7.3) % Lymph # (1.2-5.4) K/mm3 [place] # (0.0-0.8) K/mm3 Seg Neutrophils % (40.0-70.0) % Seg Neutrophils # (1.8-7.7) K/mm3 POC ABG pH 7.259 L (7.35-7.45) POC ABG pCO2 59.2 H (35-45) POC ABG pO2 62 L (80-105) Sodium (137-145) mmol/L BUN 52 H (9-20) mg/dL Creatinine 3.7 H (0.8-1.5) mg/dL Glucose (75-100) mg/dL POC Glucose 115 H (70-105) Calcium 8.1 L (8.4-10.2) mg/dL Urine Creatinine (0.1-20.0) mg/dL 12/04/16 12/04/16 12/04/16 Range/Units 05:59 06:26 06:26 RBC 3.07 L (3.65-5.03) M/mm3 Hgb 9.9 L (11.8-15.2) gm/dl Hct 29.4 L (35.5-45.6) % MCV 96 H (84-94) fl Plt Count 128 L (140-440) K/mm3 Lymph % (Auto) 10.2 L (13.4-35.0) % Darke % (Auto) 9.0 H (0.0-7.3) % Lymph # 1.1 L (1.2-5.4) K/mm3 Darke # 0.9 H (0.0-0.8) K/mm3 Seg Neutrophils % 80.0 H (40.0-70.0) % Seg Neutrophils # 8.4 H (1.8-7.7) K/mm3 POC ABG pH (7.35-7.45) POC ABG pCO2 (35-45) POC ABG pO2 (80-105) Sodium 146 H (137-145) mmol/L BUN 59 H (9-20) mg/dL Creatinine 3.6 H (0.8-1.5) mg/dL Glucose 122 H (75-100) mg/dL POC Glucose 133 H (70-105) Calcium 7.9 L (8.4-10.2) mg/dL Urine Creatinine (0.1-20.0) mg/dL 12/04/16 Range/Units Unknown RBC (3.65-5.03) M/mm3 Hgb (11.8-15.2) gm/dl Hct (35.5-45.6) % MCV (84-94) fl Plt Count (140-440) K/mm3 Lymph % (Auto) (13.4-35.0) % [place] % (Auto) (0.0-7.3) % Lymph # (1.2-5.4) K/mm3 [place]ke # (0.0-0.8) K/mm3 Seg Neutrophils % (40.0-70.0) % Seg Neutrophils # (1.8-7.7) K/mm3 POC ABG pH (7.35-7.45) POC ABG pCO2 (35-45) POC ABG pO2 (80-105) Sodium (137-145) mmol/L BUN (9-20) mg/dL Creatinine (0.8-1.5) mg/dL Glucose (75-100) mg/dL POC Glucose (70-105) Calcium (8.4-10.2) mg/dL Urine Creatinine 134.1 H (0.1-20.0) mg/dL
--- NOTE | 2016-12-04 14:50 | Magnetic Resonance Report ---
MR BRAIN WITHOUT CONTRAST HISTORY: CVA. TECHNIQUE: Multisequence, multiplanar MRI without contrast. FINDINGS: Compared to the exam dated 08/18/16. A subcentimeter area of subtle diffusion restriction is identified in the left centrum semiovale. This is along margin of a previous chronic focal infarct. A small area of hussain-infarct acute to subacute ischemia is suspected. No other areas of diffusion restriction are identified. Mild diffuse cortical volume loss and mild nonspecific chronic white matter changes are again noted and unchanged. There is no evidence for hemorrhage, mass or hydrocephalus. The ventricles are normal size. Chronic subcentimeter infarcts in the left basal ganglia/centrum semiovale region are noted. The paranasal sinuses, mastoid air cells and orbital cavities are unremarkable. IMPRESSION: Possible small area of acute to subacute ischemia in the left centrum semi-ovale as described above. This appears to be along the margin of the previous chronic focal infarct which was demonstrated on 08/18/16. Senescent changes.
[2016-12-04] MEDS: PERCOCET 5/325 PO PRN (14:55)
--- NOTE | 2016-12-04 15:21 | Progress Note ---
Assessment and Plan Assessment and plan: Acute respiratory failure * Could be secondary to acute CVA * Chest x-ray did not show any acute infiltrate or aspiration * Continue BiPAP for now, wean off as tolerated * Monitor with ABG, if unable to wean off from BiPAP by tomorrow we'll consult pulmonary * We'll continue periodic breathing treatment Closed right hip fracture * Orthopedics consulted, follow recommendation * Surgery has been postponed due to declining his clinical condition Hypertension, benign essential * Continue Coreg and monitor BP closely Hyperlipidemia * Continue statin Coronary artery disease * Continue Plavix, Coreg and statin Diabetes mellitus type 2 * Continue sliding scale of insulin History of BPH * Continue home meds (tamsulosin) Hyperkalemia likely due to declining renal function * Improved, we'll continue Kayexalate when necessary for potassium level more than 5.2 Acute kidney injury on CKD * likely due to dehydration/vasomotor nephropathy * Creatinine level further increased today (3.6) * Continue IV fluid hydration, * nephrology following Altered mental status/ encephalopathy * Etiology likely due to acute to subacute CVA * We'll continue Plavix and statin for now * We'll consult neurology * PT OT eval when medically stabilized following orthopedic surgery History of GERD * Continue PPI History Interval history: Patient seen and examined. Medical records and medication list reviewed. patient was placed on BiPAP overnight. Patient appears to be confused but able to follow simple commands. His and brother was at bedside. Patient had a history of stroke back in July 2016. MRI today shoe acute to subacute CVA on the left He is continue to complaining of left hip pain. Renal function further worse today. Family also stated that he does have history of chronic kidney disease stage III Discussed plan of care and MRI results at bedside with patient's family. Hospitalist Physical - Physical exam Narrative exam: GENERAL: Elderly male lying on bed appeared to be in mild discomfort. HEENT: Normocephalic. Atraumatic. No conjunctival congestion or icterus. Patient has moist mucous membranes. NECK: Supple. Trachea midline. BiPAP on place CHEST/LUNGS: Clear to auscultated bilaterally, breathing nonlabored. No wheezes crackles or rhonchi. HEART/CARDIOVASCULAR: Regular in rate and rhythm. S1 and S2 positive. ABDOMEN: Abdomen is soft, nontender. Patient has normal bowel sounds. SKIN: There is no rash. Warm and dry. NEURO: Follows simple command. but confused. MUSCULOSKELETAL: pain with left hip motion and external rotation, shortening of the left lower extremity EXTRIMITY: No edema, no cyanosis or clubbing. PSYCH: confused, does not answer questions. - Constitutional Vitals: Temp Pulse Resp BP Pulse Ox 98.4 F 83 18 140/62 95 12/04/16 14:32 12/04/16 14:32 12/04/16 14:32 12/04/16 14:32 12/04/16 14:32 Results - Labs CBC & Chem 7: 12/05/16 06:11 12/05/16 06:11 Labs: Laboratory Last Values WBC 10.5 K/mm3 (4.5-11.0) 12/04/16 06:26 RBC 3.07 M/mm3 (3.65-5.03) L 12/04/16 06:26 Hgb 9.9 gm/dl (11.8-15.2) L 12/04/16 06:26 Hct 29.4 % (35.5-45.6) L 12/04/16 06:26 MCV 96 fl (84-94) H 12/04/16 06:26 MCH 32 pg (28-32) 12/04/16 06:26 MCHC 34 % (32-34) 12/04/16 06:26 RDW 14.1 % (13.2-15.2) 12/04/16 06:26 Plt Count 128 K/mm3 (140-440) L 12/04/16 06:26 Lymph % (Auto) 10.2 % (13.4-35.0) L 12/04/16 06:26 [place] % (Auto) 9.0 % (0.0-7.3) H 12/04/16 06:26 Eos % (Auto) 0.5 % (0.0-4.3) 12/04/16 06:26 Baso % (Auto) 0.3 % (0.0-1.8) 12/04/16 06:26 Lymph # 1.1 K/mm3 (1.2-5.4) L 12/04/16 06:26 [place] # 0.9 K/mm3 (0.0-0.8) H 12/04/16 06:26 Eos # 0.0 K/mm3 (0.0-0.4) 12/04/16 06:26 Baso # 0.0 K/mm3 (0.0-0.1) 12/04/16 06:26 Seg Neutrophils % 80.0 % (40.0-70.0) H 12/04/16 06:26 Seg Neutrophils # 8.4 K/mm3 (1.8-7.7) H 12/04/16 06:26 PT 12.8 Sec. (12.2-14.9) 12/02/16 11:24 INR 0.97 (0.87-1.13) 12/02/16 11:24 APTT 24.7 Sec. (24.2-36.6) 12/02/16 11:24 POC ABG pH 7.259 (7.35-7.45) L 12/03/16 19:42 POC ABG pCO2 59.2 (35-45) H 12/03/16 19:42 POC ABG pO2 62 (80-105) L 12/03/16 19:42 POC ABG HCO3 26.5 12/03/16 19:42 POC ABG Total CO2 28 12/03/16 19:42 POC ABG O2 Sat 87 12/03/16 19:42 POC ABG Base Excess -1 12/03/16 19:42 FiO2 30 % 12/03/16 19:42 Sodium 146 mmol/L (137-145) H 12/04/16 06:26 Potassium 3.9 mmol/L (3.6-5.0) D 12/04/16 06:26 Chloride 104.5 mmol/L (98-107) 12/04/16 06:26 Carbon Dioxide 27 mmol/L (22-30) 12/04/16 06:26 Anion Gap 18 mmol/L 12/04/16 06:26 BUN 59 mg/dL (9-20) H 12/04/16 06:26 Creatinine 3.6 mg/dL (0.8-1.5) H 12/04/16 06:26 Estimated GFR 16 ml/min 12/04/16 06:26 BUN/Creatinine Ratio 16.38 % 12/04/16 06:26 Glucose 122 mg/dL (75-100) H 12/04/16 06:26 POC Glucose 133 (70-105) H 12/04/16 05:59 Calcium 7.9 mg/dL (8.4-10.2) L 12/04/16 06:26 Total Bilirubin 0.4 mg/dL (0.1-1.2) 12/03/16 04:49 AST 14 units/L (5-40) 12/03/16 04:49 ALT 11 units/L (7-56) 12/03/16 04:49 Alkaline Phosphatase 47 units/L (35-129) 12/03/16 04:49 Total Creatine Kinase 151 units/L (55-170) 12/04/16 06:26 Total Protein 5.9 g/dL (6.3-8.2) L 12/03/16 04:49 Albumin 3.4 g/dL (3.9-5) L 12/03/16 04:49 Albumin/Globulin Ratio 1.4 % 12/03/16 04:49 Urine Color Yellow (Yellow) 12/04/16 Unknown Urine Turbidity Clear (Clear) 12/04/16 Unknown Urine pH 5.0 (5.0-7.0) 12/04/16 Unknown Ur Specific [place] 1.014 (1.003-1.030) 12/04/16 Unknown Urine Protein <15 mg/dl mg/dL (Negative) 12/04/16 Unknown Urine Glucose (UA) Neg mg/dL (Negative) 12/04/16 Unknown Urine Ketones Neg mg/dL (Negative) 12/04/16 Unknown Urine Blood Sm (Negative) 12/04/16 Unknown Urine Nitrite Neg (Negative) 12/04/16 Unknown Urine Bilirubin Neg (Negative) 12/04/16 Unknown Urine Urobilinogen < 2.0 mg/dL (<2.0) 12/04/16 Unknown Ur Leukocyte Esterase Neg (Negative) 12/04/16 Unknown Urine WBC (Auto) 1.0 /HPF (0.0-6.0) 12/04/16 Unknown Urine RBC (Auto) < 1.0 /HPF (0.0-6.0) 12/04/16 Unknown Urine Bacteria (Auto) 1+ /HPF (Negative) 12/04/16 Unknown Urine Mucus Few /HPF 12/04/16 Unknown Urine Creatinine 134.1 mg/dL (0.1-20.0) H 12/04/16 Unknown Urine Sodium 31 mEq/L 12/04/16 Unknown - Imaging and Cardiology Chest x-ray: report reviewed MRI - head: report reviewed
--- NOTE | 2016-12-04 15:45 | Ultrasound Report ---
RENAL ULTRASOUND: Imaging of the right kidney demonstrates an approximate length of 9.3 cm and the left renal length is similar but both are too difficult to measure for accuracy. There is a large cyst which is primarily exophytic and lateral to the right kidney measuring 17 cm in size. In the upper pole of the left kidney there is a 3.4 cm cyst and in the lower pole there are 2 and possibly 3 cysts the largest measuring 4.6 cm. On the left side there is a primarily exophytic cyst in the upper pole measuring 9.2 cm with 3 other cysts in the mid and lower kidney with the largest measuring 8.6 cm. Both kidneys appear to be generally echogenic. There is no hydronephrosis. There's no definite solid mass noted. Imaging of the urinary bladder is grossly normal. IMPRESSIONS: 1. Generally echogenic kidneys consistent with medical renal disease. 2. Bilateral multiple large renal cysts most of which are mostly exophytic.
[2016-12-04] MEDS: ZOCOR PO SCH (22:38)
[2016-12-04] MEDS: LOVENOX SUB-Q SCH (22:38)
[2016-12-04] MEDS: NACL 0.9% 1000 ML 1,000 ML IV SCH (22:39)
[2016-12-05] MEDS: DUONEB 0.5 MG-3 MG/3 ML SOLN IH SCH ×4 (01:56→19:28)
[2016-12-05] MEDS: ATIVAN IV PRN ×3 (03:36→12:25)
[2016-12-05 06:41] LABS: Basophils % (Auto) 0.3 % (0.0-1.8); Eosinophils % (Auto) 1.2 % (0.0-4.3); Hematocrit 28.3 % (35.5-45.6); Hemoglobin 9.5 gm/dl (11.8-15.2); Mean Corpuscular HGB Conc 34 % (32-34); Mean Corpuscular Hemoglobin 32 pg (28-32); Mean Corpuscular Volume 96 fl (84-94); Platelet Count 128 K/mm3 (140-440); Red Blood Count 2.96 M/mm3 (3.65-5.03); Red Cell Distribution Width 14.1 % (13.2-15.2); White Blood Count 9.1 K/mm3 (4.5-11.0)
[2016-12-05 07:00] LABS: Potassium 3.7 mmol/L (3.6-5.0)
[2016-12-05] MEDS: NOVOLOG SUB-Q SCH ×4 (08:14→23:08)
--- NOTE | 2016-12-05 08:15 | Progress Note ---
Assessment and Plan - Patient Problems (1) MENDOZA (acute kidney injury) Current Visit: Yes Status: Acute Plan to address problem: Acute Kidney Injury superimposed on CKD stage 3, likely secondary to hemodynamic insult. Creatinine continue to improve. Continue IV fluids. (2) Hyperkalemia Current Visit: Yes Status: Acute Plan to address problem: Improved. (3) Closed right hip fracture Current Visit: Yes Status: Acute Qualifiers: Encounter type: initial encounter Qualified Code(s): S72.001A - Fracture of unspecified part of neck of right femur, initial encounter for closed fracture (4) Dysarthria as late effect of cerebrovascular accident (CVA) Current Visit: No Status: Acute (5) DM type 2 (diabetes mellitus, type 2) Current Visit: Yes Status: Acute Subjective Date of service: 12/05/16 Objective - Vital Signs Vital signs: Vital Signs - 12hr 12/04/16 12/04/16 12/04/16 21:40 21:46 21:47 Temperature Pulse Rate 80 Pulse Rate [ Right Radial] Pulse Rate [ 80 Right] Respiratory 22 Rate Respiratory 18 Rate [Right] Blood Pressure Blood Pressure [Right Arm] O2 Sat by Pulse 92 92 Oximetry 12/04/16 12/04/16 12/05/16 21:53 22:38 01:57 Temperature Pulse Rate 82 Pulse Rate [ Right Radial] Pulse Rate [ 81 78 Right] Respiratory Rate Respiratory 20 18 Rate [Right] Blood Pressure 131/87 Blood Pressure [Right Arm] O2 Sat by Pulse Oximetry 12/05/16 12/05/16 12/05/16 01:59 02:12 04:20 Temperature 97.8 F Pulse Rate 74 Pulse Rate [ 81 Right Radial] Pulse Rate [ 80 Right] Respiratory 19 22 Rate Respiratory 18 Rate [Right] Blood Pressure Blood Pressure 114/59 [Right Arm] O2 Sat by Pulse 92 90 Oximetry - General Appearance General appearance: well-developed, obese, frail, other (no distress) EENT: other (right pupil is dilated) Neck: supple Respiratory: Present: Clear to Ascultation Cardiology: regular, S1S2 Gastrointestinal: normoactive bowel sounds, no tenderness, no distended Integumentary: no rash, warm and dry Neurologic: confused, disoriented Musculoskeletal: other (pain on passive movement of right hip) Psychiatric: other (confused) - Lab 12/05/16 06:11 12/05/16 06:11 Most recent lab results Calcium 8.0 mg/dL (8.4-10.2) L 12/05/16 06:11 Urine Creatinine 134.1 mg/dL (0.1-20.0) H 12/04/16 Unknown Urine Sodium 31 mEq/L 12/04/16 Unknown
[2016-12-05] MEDS: COREG PO SCH ×2 (10:00→22:25)
--- NOTE | 2016-12-05 12:33 | Consultation ---
History of Present Illness - Reason for Consult Consult date: 12/05/16 stroke - History of Present Illness spoke with Dr. Ayala plan to review the MRI with radiology these are described as small infarcts and I will comment further rec checking carotid u/s Past History Past Medical History: acute [place], COPD, diabetes, heart failure, hypertension, hyperlipidemia, renal failure, stroke Medications and Allergies Allergies Allergy/AdvReac Type Severity Reaction Status Date / Time aspirin Allergy Nausea Verified 04/09/15 06:55 morphine Allergy hallucinati Verified 04/09/15 06:57 ons Home Medications Medication Instructions Recorded Confirmed Last Taken Type Clopidogrel [Plavix] 75 mg PO QDAY #30 tablet 08/28/16 12/02/16 Unknown Rx Simvastatin [Zocor TAB] 20 mg PO QHS #30 tablet 08/28/16 12/02/16 Unknown Rx glipiZIDE [glipiZIDE ER] 5 mg PO QAM #30 tab.er.24 08/28/16 12/02/16 Unknown Rx predniSONE [Deltasone] 5 mg PO QDAY tablet 08/28/16 12/02/16 Unknown Rx Carvedilol [Coreg] 6.25 mg PO BID 12/02/16 12/02/16 Unknown History Isosorb Dinit/Hydralazine HCl 1 each PO DAILY 12/02/16 12/02/16 Unknown History [Bidil Tablet] Ranitidine HCl [Acid Cardiographer] 150 mg PO DAILY 12/02/16 12/02/16 Unknown History Tamsulosin [Flomax] 0.4 mg PO QDAY 12/02/16 12/02/16 Unknown History amLODIPine [Norvasc] 1 tab PO DAILY 12/02/16 12/02/16 Unknown History Active Meds: Active Medications Acetaminophen (Tylenol) 650 mg PO Q4H PRN PRN Reason: Pain MILD(1-3)/Fever >100.5/CURIEL Albuterol/Ipratropium (Duoneb 0.5 Mg-3 Mg/3 Ml Soln) 1 ampul IH Q6HRT [facility] Last Admin: 12/05/16 07:17 Dose: 1 ampul Albuterol/Ipratropium (Duoneb 0.5 Mg-3 Mg/3 Ml Soln) 1 ampul IH Q3HRT PRN PRN Reason: shortness of breath Amlodipine Besylate (Norvasc) 5 mg PO DAILY [facility] Last Admin: 12/04/16 10:24 Dose: Not Given Bisacodyl (Dulcolax) 10 mg IA QDAY PRN PRN Reason: Constipation unrelieved by MOM Carvedilol (Coreg) 6.25 mg PO BID [facility] Last Admin: 12/04/16 22:38 Dose: 6.25 mg Clopidogrel Bisulfate (Plavix) 75 mg PO QDAY [facility] Last Admin: 12/04/16 10:22 Dose: Not Given Enoxaparin Sodium (Lovenox) 30 mg SUB-Q QHS [facility] Last Admin: 12/04/16 22:38 Dose: 30 mg Famotidine (Pepcid) 20 mg PO DAILY [facility] Last Admin: 12/04/16 10:22 Dose: Not Given Sodium Chloride (Nacl 0.9% 1000 Ml) 1,000 mls @ 50 mls/hr IV DIRECT [facility] Last Admin: 12/04/16 22:39 Dose: 50 mls/hr Insulin Aspart (Novolog) 0 units SUB-Q ACHS [facility] PRN Reason: Protocol Last Admin: 12/05/16 08:14 Dose: Not Given Isosorbide Dinitrate/Hydralazine (Bidil 20/37.5mg) 1 each PO DAILY [facility] Last Admin: 12/04/16 10:21 Dose: Not Given Lorazepam (Ativan) 1 mg IV Q3H PRN PRN Reason: Agitation Last Admin: 12/05/16 12:25 Dose: 1 mg Magnesium Hydroxide (Milk Of Magnesia) 30 ml PO Q4H PRN PRN Reason: Constipation Ondansetron HCl (Zofran) 4 mg IV Q3H PRN PRN Reason: Nausea And Vomiting Oxycodone/Acetaminophen (Percocet 5/325) 1 tab PO Q6H PRN PRN Reason: Pain, Moderate (4-6) Last Admin: 12/04/16 14:55 Dose: 1 tab Prednisone (Deltasone) 5 mg PO QDAY [facility] Last Admin: 12/04/16 10:23 Dose: Not Given Simvastatin (Zocor) 20 mg PO QHS [facility] Last Admin: 12/04/16 22:38 Dose: 20 mg Sodium Polystyrene Sulfonate (Kayexalate) 15 gm PO Q6HR PRN PRN Reason: Hyperkalemia Tamsulosin HCl (Flomax) 0.4 mg PO QDAY [facility] Last Admin: 12/04/16 10:23 Dose: Not Given Exam - Constitutional Vitals: Temp Pulse Resp BP Pulse Ox 99.5 F 85 24 123/57 95 12/05/16 08:00 12/05/16 08:00 12/05/16 08:00 12/05/16 08:00 12/05/16 08:00 Results - Labs CBC & Chem 7: 12/05/16 06:11 12/05/16 06:11 Labs: Abnormal lab results 12/04/16 12/04/16 12/05/16 Range/Units 12:05 16:44 06:11 RBC (3.65-5.03) M/mm3 Hgb (11.8-15.2) gm/dl Hct (35.5-45.6) % MCV (84-94) fl Plt Count (140-440) K/mm3 [place] % (Auto) (0.0-7.3) % Seg Neutrophils % (40.0-70.0) % Sodium 147 H (137-145) mmol/L Chloride 108.0 H (98-107) mmol/L BUN 60 H (9-20) mg/dL Creatinine 3.0 H (0.8-1.5) mg/dL POC Glucose 128 H 112 H (70-105) Calcium 8.0 L (8.4-10.2) mg/dL 12/05/16 12/05/16 Range/Units 06:11 06:49 RBC 2.96 L (3.65-5.03) M/mm3 Hgb 9.5 L (11.8-15.2) gm/dl Hct 28.3 L (35.5-45.6) % MCV 96 H (84-94) fl Plt Count 128 L (140-440) K/mm3 [place] % (Auto) 9.1 H (0.0-7.3) % Seg Neutrophils % 75.4 H (40.0-70.0) % Sodium (137-145) mmol/L Chloride (98-107) mmol/L BUN (9-20) mg/dL Creatinine (0.8-1.5) mg/dL POC Glucose 114 H (70-105) Calcium (8.4-10.2) mg/dL
[2016-12-05] MEDS: NACL 0.9% 1000 ML 1,000 ML IV SCH (14:22)
--- NOTE | 2016-12-05 15:09 | Progress Note ---
Assessment and Plan Assessment and plan: Acute respiratory failure * Could be secondary to acute CVA * Chest x-ray did not show any acute infiltrate or aspiration * off BiPAP today, cont n/c O2 to keep o2 sat more than 94% Closed right hip fracture * Orthopedics consulted, follow recommendation * Surgery has been postponed due to declining his clinical condition Hypertension, benign essential * Continue Coreg and monitor BP closely Hyperlipidemia * Continue statin Coronary artery disease * Continue Plavix, Coreg and statin Diabetes mellitus type 2 * Continue sliding scale of insulin History of BPH * Continue home meds (tamsulosin) Hyperkalemia likely due to declining renal function * Improved, we'll continue Kayexalate when necessary for potassium level more than 5.2 Acute kidney injury on CKD * likely due to dehydration/vasomotor nephropathy * Creatinine level improving * Continue IV fluid hydration, * nephrology following Altered mental status/ encephalopathy * Etiology likely due to acute to subacute CVA * We'll continue Plavix and statin for now * We'll follow neurology recommendation * PT OT eval when medically stabilized following orthopedic surgery History of GERD * Continue PPI History Interval history: Patient seen and examined. Medical records and medication list reviewed. patient is off BiPAP today. Patient appears to be confused but able to follow simple commands. Patient had a history of stroke back in July 2016. MRI showed acute to subacute CVA on the left He is continue to complaining of left hip pain. Renal function improved today. Family also stated that he does have history of chronic kidney disease stage III Discussed plan of care at bedside with patient's family. Waiting for neurology recommendation Hospitalist Physical - Physical exam Narrative exam: GENERAL: Elderly male lying on bed appeared to be in no discomfort. HEENT: Normocephalic. Atraumatic. No conjunctival congestion or icterus. Patient has moist mucous membranes. NECK: Supple. Trachea midline. off bipap CHEST/LUNGS: Clear to auscultated bilaterally, breathing nonlabored. No wheezes crackles or rhonchi. HEART/CARDIOVASCULAR: Regular in rate and rhythm. S1 and S2 positive. ABDOMEN: Abdomen is soft, nontender. Patient has normal bowel sounds. SKIN: There is no rash. Warm and dry. NEURO: Follows simple command. but confused. MUSCULOSKELETAL: pain with left hip motion and external rotation, shortening of the left lower extremity EXTRIMITY: No edema, no cyanosis or clubbing. PSYCH: confused, does not answer questions. - Constitutional Vitals: Temp Pulse Resp BP Pulse Ox 99.5 F 76 20 123/57 95 12/05/16 08:00 12/05/16 13:12 12/05/16 13:12 12/05/16 08:00 12/05/16 08:00 Results - Labs CBC & Chem 7: 12/05/16 06:11 12/06/16 06:03 Labs: Laboratory Last Values WBC 9.1 K/mm3 (4.5-11.0) 12/05/16 06:11 RBC 2.96 M/mm3 (3.65-5.03) L 12/05/16 06:11 Hgb 9.5 gm/dl (11.8-15.2) L 12/05/16 06:11 Hct 28.3 % (35.5-45.6) L 12/05/16 06:11 MCV 96 fl (84-94) H 12/05/16 06:11 MCH 32 pg (28-32) 12/05/16 06:11 MCHC 34 % (32-34) 12/05/16 06:11 RDW 14.1 % (13.2-15.2) 12/05/16 06:11 Plt Count 128 K/mm3 (140-440) L 12/05/16 06:11 Lymph % (Auto) 14.0 % (13.4-35.0) 12/05/16 06:11 [place] % (Auto) 9.1 % (0.0-7.3) H 12/05/16 06:11 Eos % (Auto) 1.2 % (0.0-4.3) 12/05/16 06:11 Baso % (Auto) 0.3 % (0.0-1.8) 12/05/16 06:11 Lymph # 1.3 K/mm3 (1.2-5.4) 12/05/16 06:11 [place] # 0.8 K/mm3 (0.0-0.8) 12/05/16 06:11 Eos # 0.1 K/mm3 (0.0-0.4) 12/05/16 06:11 Baso # 0.0 K/mm3 (0.0-0.1) 12/05/16 06:11 Seg Neutrophils % 75.4 % (40.0-70.0) H 12/05/16 06:11 Seg Neutrophils # 6.8 K/mm3 (1.8-7.7) 12/05/16 06:11 PT 12.8 Sec. (12.2-14.9) 12/02/16 11:24 INR 0.97 (0.87-1.13) 12/02/16 11:24 APTT 24.7 Sec. (24.2-36.6) 12/02/16 11:24 POC ABG pH 7.259 (7.35-7.45) L 12/03/16 19:42 POC ABG pCO2 59.2 (35-45) H 12/03/16 19:42 POC ABG pO2 62 (80-105) L 12/03/16 19:42 POC ABG HCO3 26.5 12/03/16 19:42 POC ABG Total CO2 28 12/03/16 19:42 POC ABG O2 Sat 87 12/03/16 19:42 POC ABG Base Excess -1 12/03/16 19:42 FiO2 30 % 12/03/16 19:42 Sodium 147 mmol/L (137-145) H 12/05/16 06:11 Potassium 3.7 mmol/L (3.6-5.0) 12/05/16 06:11 Chloride 108.0 mmol/L (98-107) H 12/05/16 06:11 Carbon Dioxide 28 mmol/L (22-30) 12/05/16 06:11 Anion Gap 15 mmol/L 12/05/16 06:11 BUN 60 mg/dL (9-20) H 12/05/16 06:11 Creatinine 3.0 mg/dL (0.8-1.5) H 12/05/16 06:11 Estimated GFR 20 ml/min 12/05/16 06:11 BUN/Creatinine Ratio 20.00 % 12/05/16 06:11 Glucose 96 mg/dL (75-100) 12/05/16 06:11 POC Glucose 98 (70-105) 12/05/16 12:36 Calcium 8.0 mg/dL (8.4-10.2) L 12/05/16 06:11 Total Bilirubin 0.4 mg/dL (0.1-1.2) 12/03/16 04:49 AST 14 units/L (5-40) 12/03/16 04:49 ALT 11 units/L (7-56) 12/03/16 04:49 Alkaline Phosphatase 47 units/L (35-129) 12/03/16 04:49 Total Creatine Kinase 151 units/L (55-170) 12/04/16 06:26 Total Protein 5.9 g/dL (6.3-8.2) L 12/03/16 04:49 Albumin 3.4 g/dL (3.9-5) L 12/03/16 04:49 Albumin/Globulin Ratio 1.4 % 12/03/16 04:49 Urine Color Yellow (Yellow) 12/04/16 Unknown Urine Turbidity Clear (Clear) 12/04/16 Unknown Urine pH 5.0 (5.0-7.0) 12/04/16 Unknown Ur Specific [place] 1.014 (1.003-1.030) 12/04/16 Unknown Urine Protein <15 mg/dl mg/dL (Negative) 12/04/16 Unknown Urine Glucose (UA) Neg mg/dL (Negative) 12/04/16 Unknown Urine Ketones Neg mg/dL (Negative) 12/04/16 Unknown Urine Blood Sm (Negative) 12/04/16 Unknown Urine Nitrite Neg (Negative) 12/04/16 Unknown Urine Bilirubin Neg (Negative) 12/04/16 Unknown Urine Urobilinogen < 2.0 mg/dL (<2.0) 12/04/16 Unknown Ur Leukocyte Esterase Neg (Negative) 12/04/16 Unknown Urine WBC (Auto) 1.0 /HPF (0.0-6.0) 12/04/16 Unknown Urine RBC (Auto) < 1.0 /HPF (0.0-6.0) 12/04/16 Unknown Urine Bacteria (Auto) 1+ /HPF (Negative) 12/04/16 Unknown Urine Mucus Few /HPF 12/04/16 Unknown Urine Creatinine 134.1 mg/dL (0.1-20.0) H 12/04/16 Unknown Urine Sodium 31 mEq/L 12/04/16 Unknown
[2016-12-05] MEDS: BIDIL 20/37.5MG PO SCH (17:39)
[2016-12-05] MEDS: NORVASC PO SCH (17:40)
[2016-12-05] MEDS: FLOMAX PO SCH (17:40)
[2016-12-05] MEDS: DELTASONE PO SCH (17:40)
[2016-12-05] MEDS: PLAVIX PO SCH (17:41)
[2016-12-05] MEDS: PEPCID PO SCH (17:41)
[2016-12-05] MEDS: ZOCOR PO SCH (22:25)
[2016-12-05] MEDS: LOVENOX SUB-Q SCH (22:25)
[2016-12-06] MEDS: DUONEB 0.5 MG-3 MG/3 ML SOLN IH SCH ×4 (02:09→19:45)
[2016-12-06] MEDS: NACL 0.9% 1000 ML 1,000 ML IV SCH (06:36)
[2016-12-06 07:03] LABS: BUN/Creatinine Ratio 24.07; Calcium 8.2 mg/dL (8.4-10.2); Chloride 111.7 mmol/L (98-107); Potassium 3.9 mmol/L (3.6-5.0)
[2016-12-06] MEDS: NOVOLOG SUB-Q SCH ×4 (08:00→22:31)
--- NOTE | 2016-12-06 09:03 | Progress Note ---
Assessment and Plan - Patient Problems (1) MENDOZA (acute kidney injury) Current Visit: Yes Status: Acute Plan to address problem: Acute Kidney Injury superimposed on CKD stage 3, likely secondary to hemodynamic insult. Creatinine continue to improve. Hypernatremia: Change IV fluids to 1/2 NS. (2) Hyperkalemia Current Visit: Yes Status: Acute Plan to address problem: Improved. (3) Closed right hip fracture Current Visit: Yes Status: Acute Qualifiers: Encounter type: initial encounter Qualified Code(s): S72.001A - Fracture of unspecified part of neck of right femur, initial encounter for closed fracture (4) DM type 2 (diabetes mellitus, type 2) Current Visit: Yes Status: Acute (5) Acute CVA (cerebrovascular accident) Current Visit: Yes Status: Acute Plan to address problem: Followed by Neuro. Subjective Date of service: 12/06/16 Interval history: Patient is confused. Objective - Vital Signs Vital signs: Vital Signs - 12hr 12/05/16 12/05/16 12/06/16 22:00 22:25 00:00 Temperature 98.6 F Pulse Rate 70 Pulse Rate [ 78 Left Radial] Respiratory 20 24 Rate Respiratory 20 Rate [Abdomen] Respiratory 20 Rate [Right Hip ] Respiratory 20 Rate [Soft Tissue] Blood Pressure 117/60 Blood Pressure 112/56 [Right Arm] O2 Sat by Pulse 93 Oximetry - General Appearance General appearance: well-developed, obese, frail, other (no distress) EENT: other (right pupil dilated) Neck: supple Respiratory: Present: Clear to Ascultation Cardiology: regular, S1S2, systolic murmur (faint) Gastrointestinal: normoactive bowel sounds, no tenderness, no distended Integumentary: no rash, warm and dry Neurologic: confused, disoriented Musculoskeletal: other (movement of the right hip is painful.) Psychiatric: other (confused) - Lab 12/05/16 06:11 12/06/16 06:03 Most recent lab results Calcium 8.2 mg/dL (8.4-10.2) L 12/06/16 06:03 Urine Creatinine 134.1 mg/dL (0.1-20.0) H 12/04/16 Unknown Urine Sodium 31 mEq/L 12/04/16 Unknown
[2016-12-06] MEDS ORDERED: NACL 0.45% 1000 ML 1,000 ML IV SCH (10:00)
[2016-12-06] MEDS: NORVASC PO SCH (12:27)
[2016-12-06] MEDS: PERCOCET 5/325 PO PRN (12:31)
[2016-12-06] MEDS: FLOMAX PO SCH (12:32)
[2016-12-06] MEDS: COREG PO SCH ×2 (12:32→22:33)
[2016-12-06] MEDS: BIDIL 20/37.5MG PO SCH (12:33)
[2016-12-06] MEDS: DELTASONE PO SCH (12:33)
[2016-12-06] MEDS: PLAVIX PO SCH (12:33)
[2016-12-06] MEDS: PEPCID PO SCH (12:33)
--- NOTE | 2016-12-06 12:45 | Consultation ---
History of Present Illness - Reason for Consult Consult date: 12/06/16 stroke - History of Present Illness OK to hold the plavix patient cleared for surgery... the new strokes are minor lacunar strokes.... spoke to the hospitalist Past History Past Medical History: acute SD, COPD, diabetes, heart failure, hypertension, hyperlipidemia, renal failure, stroke Medications and Allergies Allergies Allergy/AdvReac Type Severity Reaction Status Date / Time aspirin Allergy Nausea Verified 04/09/15 06:55 morphine Allergy hallucinati Verified 04/09/15 06:57 ons Home Medications Medication Instructions Recorded Confirmed Last Taken Type Clopidogrel [Plavix] 75 mg PO QDAY #30 tablet 08/28/16 12/02/16 Unknown Rx Simvastatin [Zocor TAB] 20 mg PO QHS #30 tablet 08/28/16 12/02/16 Unknown Rx glipiZIDE [glipiZIDE ER] 5 mg PO QAM #30 tab.er.24 08/28/16 12/02/16 Unknown Rx predniSONE [Deltasone] 5 mg PO QDAY tablet 08/28/16 12/02/16 Unknown Rx Carvedilol [Coreg] 6.25 mg PO BID 12/02/16 12/02/16 Unknown History Isosorb Dinit/Hydralazine HCl 1 each PO DAILY 12/02/16 12/02/16 Unknown History [Bidil Tablet] Ranitidine HCl [Acid Pipeline Engineer] 150 mg PO DAILY 12/02/16 12/02/16 Unknown History Tamsulosin [Flomax] 0.4 mg PO QDAY 12/02/16 12/02/16 Unknown History amLODIPine [Norvasc] 1 tab PO DAILY 12/02/16 12/02/16 Unknown History Active Meds: Active Medications Acetaminophen (Tylenol) 650 mg PO Q4H PRN PRN Reason: Pain MILD(1-3)/Fever >100.5/CURIEL Albuterol/Ipratropium (Duoneb 0.5 Mg-3 Mg/3 Ml Soln) 1 ampul IH Q6HRT [facility] Last Admin: 12/06/16 07:19 Dose: 1 ampul Albuterol/Ipratropium (Duoneb 0.5 Mg-3 Mg/3 Ml Soln) 1 ampul IH Q3HRT PRN PRN Reason: shortness of breath Amlodipine Besylate (Norvasc) 5 mg PO DAILY [facility] Last Admin: 12/06/16 12:27 Dose: Not Given Bisacodyl (Dulcolax) 10 mg [place] QDAY PRN PRN Reason: Constipation unrelieved by MOM Carvedilol (Coreg) 6.25 mg PO BID [facility] Last Admin: 12/06/16 12:32 Dose: 6.25 mg Clopidogrel Bisulfate (Plavix) 75 mg PO QDAY [facility] Last Admin: 12/06/16 12:33 Dose: 75 mg Enoxaparin Sodium (Lovenox) 30 mg SUB-Q QHS [facility] Last Admin: 12/05/16 22:25 Dose: 30 mg Famotidine (Pepcid) 20 mg PO DAILY [facility] Last Admin: 12/06/16 12:33 Dose: 20 mg Sodium Chloride (Nacl 0.45% 1000 Ml) 1,000 mls @ 50 mls/hr IV DIRECT [facility] Insulin Aspart (Novolog) 0 units SUB-Q ACHS [facility] PRN Reason: Protocol Last Admin: 12/05/16 23:08 Dose: Not Given Isosorbide Dinitrate/Hydralazine (Bidil 20/37.5mg) 1 each PO DAILY [facility] Last Admin: 12/06/16 12:33 Dose: 1 each Lorazepam (Ativan) 1 mg IV Q3H PRN PRN Reason: Agitation Last Admin: 12/05/16 12:25 Dose: 1 mg Magnesium Hydroxide (Milk Of Magnesia) 30 ml PO Q4H PRN PRN Reason: Constipation Ondansetron HCl (Zofran) 4 mg IV Q3H PRN PRN Reason: Nausea And Vomiting Oxycodone/Acetaminophen (Percocet 5/325) 1 tab PO Q6H PRN PRN Reason: Pain, Moderate (4-6) Last Admin: 12/06/16 12:31 Dose: 1 tab Prednisone (Deltasone) 5 mg PO QDAY [facility] Last Admin: 12/06/16 12:33 Dose: 5 mg Simvastatin (Zocor) 20 mg PO QHS [facility] Last Admin: 12/05/16 22:25 Dose: 20 mg Sodium Polystyrene Sulfonate (Kayexalate) 15 gm PO Q6HR PRN PRN Reason: Hyperkalemia Tamsulosin HCl (Flomax) 0.4 mg PO QDAY [facility] Last Admin: 12/06/16 12:32 Dose: 0.4 mg Exam - Constitutional Vitals: Temp Pulse Resp BP Pulse Ox 98.0 F 70 22 113/53 95 12/06/16 08:15 12/06/16 08:15 12/06/16 08:15 12/06/16 12:27 12/06/16 08:15 Results - Labs CBC & Chem 7: 12/05/16 06:11 12/06/16 06:03 Labs: Abnormal lab results 12/06/16 Range/Units 06:03 Sodium 150 H (137-145) mmol/L Chloride 111.7 H (98-107) mmol/L BUN 65 H (9-20) mg/dL Creatinine 2.7 H (0.8-1.5) mg/dL Calcium 8.2 L (8.4-10.2) mg/dL
--- NOTE | 2016-12-06 15:44 | Progress Note ---
Assessment and Plan Assessment and plan: Acute respiratory failure * Could be secondary to acute CVA * Chest x-ray did not show any acute infiltrate or aspiration * off BiPAP today, cont n/c O2 to keep o2 sat more than 94% Closed right hip fracture * Orthopedics reconsulted for possible surgery * neurology cleared for surgery * hold plavix, place on aspirin for now Hypertension, benign essential * Continue Coreg and monitor BP closely Hyperlipidemia * Continue statin Coronary artery disease * Continue aspirin, Coreg and statin Diabetes mellitus type 2 * Continue sliding scale of insulin History of BPH * Continue home meds (tamsulosin) Hyperkalemia likely due to declining renal function * Improved, we'll continue Kayexalate when necessary for potassium level more than 5.2 Acute kidney injury on CKD * likely due to dehydration/vasomotor nephropathy * Creatinine level improving * Continue IV fluid hydration, * nephrology following Altered mental status/ encephalopathy * Etiology likely due to acute to subacute CVA * We'll continue aspirin and statin for now * neurology following * PT OT eval when medically stabilized following orthopedic surgery History of GERD * Continue PPI hypernatremia: * change iv fluid to 1/2 NS History Interval history: Patient seen and examined. Medical records and medication list reviewed. Patient appears to be sleepy, discussed with the . Patient had a history of stroke back in July 2016. MRI showed acute to subacute CVA on the left Discussed plan of care at bedside with patient's family. neurology cleared for surgery, reconsult orthopedics Hospitalist Physical - Physical exam Narrative exam: GENERAL: Elderly male lying on bed appeared to be in no discomfort. HEENT: Normocephalic. Atraumatic. No conjunctival congestion or icterus. Patient has moist mucous membranes. NECK: Supple. Trachea midline. off bipap CHEST/LUNGS: Clear to auscultated bilaterally, breathing nonlabored. No wheezes crackles or rhonchi. HEART/CARDIOVASCULAR: Regular in rate and rhythm. S1 and S2 positive. ABDOMEN: Abdomen is soft, nontender. Patient has normal bowel sounds. SKIN: There is no rash. Warm and dry. NEURO: Follows simple command. but appears to be sleepy. dysarthric MUSCULOSKELETAL: pain with left hip motion and external rotation, shortening of the left lower extremity EXTRIMITY: No edema, no cyanosis or clubbing. PSYCH: not agitated. - Constitutional Vitals: Temp Pulse Resp BP Pulse Ox 98.7 F 74 20 113/53 96 12/06/16 12:20 12/06/16 13:36 12/06/16 13:36 12/06/16 12:27 12/06/16 12:20 Results - Labs CBC & Chem 7: 12/05/16 06:11 12/06/16 06:03 Labs: Laboratory Last Values WBC 9.1 K/mm3 (4.5-11.0) 12/05/16 06:11 RBC 2.96 M/mm3 (3.65-5.03) L 12/05/16 06:11 Hgb 9.5 gm/dl (11.8-15.2) L 12/05/16 06:11 Hct 28.3 % (35.5-45.6) L 12/05/16 06:11 MCV 96 fl (84-94) H 12/05/16 06:11 MCH 32 pg (28-32) 12/05/16 06:11 MCHC 34 % (32-34) 12/05/16 06:11 RDW 14.1 % (13.2-15.2) 12/05/16 06:11 Plt Count 128 K/mm3 (140-440) L 12/05/16 06:11 Lymph % (Auto) 14.0 % (13.4-35.0) 12/05/16 06:11 [place] % (Auto) 9.1 % (0.0-7.3) H 12/05/16 06:11 Eos % (Auto) 1.2 % (0.0-4.3) 12/05/16 06:11 Baso % (Auto) 0.3 % (0.0-1.8) 12/05/16 06:11 Lymph # 1.3 K/mm3 (1.2-5.4) 12/05/16 06:11 [place] # 0.8 K/mm3 (0.0-0.8) 12/05/16 06:11 Eos # 0.1 K/mm3 (0.0-0.4) 12/05/16 06:11 Baso # 0.0 K/mm3 (0.0-0.1) 12/05/16 06:11 Seg Neutrophils % 75.4 % (40.0-70.0) H 12/05/16 06:11 Seg Neutrophils # 6.8 K/mm3 (1.8-7.7) 12/05/16 06:11 PT 12.8 Sec. (12.2-14.9) 12/02/16 11:24 INR 0.97 (0.87-1.13) 12/02/16 11:24 APTT 24.7 Sec. (24.2-36.6) 12/02/16 11:24 POC ABG pH 7.259 (7.35-7.45) L 12/03/16 19:42 POC ABG pCO2 59.2 (35-45) H 12/03/16 19:42 POC ABG pO2 62 (80-105) L 12/03/16 19:42 POC ABG HCO3 26.5 12/03/16 19:42 POC ABG Total CO2 28 12/03/16 19:42 POC ABG O2 Sat 87 12/03/16 19:42 POC ABG Base Excess -1 12/03/16 19:42 FiO2 30 % 12/03/16 19:42 Sodium 150 mmol/L (137-145) H 12/06/16 06:03 Potassium 3.9 mmol/L (3.6-5.0) 12/06/16 06:03 Chloride 111.7 mmol/L (98-107) H 12/06/16 06:03 Carbon Dioxide 25 mmol/L (22-30) 12/06/16 06:03 Anion Gap 17 mmol/L 12/06/16 06:03 BUN 65 mg/dL (9-20) H 12/06/16 06:03 Creatinine 2.7 mg/dL (0.8-1.5) H 12/06/16 06:03 Estimated GFR 23 ml/min 12/06/16 06:03 BUN/Creatinine Ratio 24.07 % 12/06/16 06:03 Glucose 92 mg/dL (75-100) 12/06/16 06:03 POC Glucose 75 (70-105) 12/06/16 12:17 Calcium 8.2 mg/dL (8.4-10.2) L 12/06/16 06:03 Total Bilirubin 0.4 mg/dL (0.1-1.2) 12/03/16 04:49 AST 14 units/L (5-40) 12/03/16 04:49 ALT 11 units/L (7-56) 12/03/16 04:49 Alkaline Phosphatase 47 units/L (35-129) 12/03/16 04:49 Total Creatine Kinase 151 units/L (55-170) 12/04/16 06:26 Total Protein 5.9 g/dL (6.3-8.2) L 12/03/16 04:49 Albumin 3.4 g/dL (3.9-5) L 12/03/16 04:49 Albumin/Globulin Ratio 1.4 % 12/03/16 04:49 Urine Color Yellow (Yellow) 12/04/16 Unknown Urine Turbidity Clear (Clear) 12/04/16 Unknown Urine pH 5.0 (5.0-7.0) 12/04/16 Unknown Ur Specific [place] 1.014 (1.003-1.030) 12/04/16 Unknown Urine Protein <15 mg/dl mg/dL (Negative) 12/04/16 Unknown Urine Glucose (UA) Neg mg/dL (Negative) 12/04/16 Unknown Urine Ketones Neg mg/dL (Negative) 12/04/16 Unknown Urine Blood Sm (Negative) 12/04/16 Unknown Urine Nitrite Neg (Negative) 12/04/16 Unknown Urine Bilirubin Neg (Negative) 12/04/16 Unknown Urine Urobilinogen < 2.0 mg/dL (<2.0) 12/04/16 Unknown Ur Leukocyte Esterase Neg (Negative) 12/04/16 Unknown Urine WBC (Auto) 1.0 /HPF (0.0-6.0) 12/04/16 Unknown Urine RBC (Auto) < 1.0 /HPF (0.0-6.0) 12/04/16 Unknown Urine Bacteria (Auto) 1+ /HPF (Negative) 12/04/16 Unknown Urine Mucus Few /HPF 12/04/16 Unknown Urine Creatinine 134.1 mg/dL (0.1-20.0) H 12/04/16 Unknown Urine Sodium 31 mEq/L 12/04/16 Unknown
[2016-12-06] MEDS: ZOCOR PO SCH (22:33)
[2016-12-06] MEDS: LOVENOX SUB-Q SCH (22:33)
[2016-12-07] MEDS: DUONEB 0.5 MG-3 MG/3 ML SOLN IH SCH ×4 (01:17→20:46)
[2016-12-07 05:25] LABS: Basophils % (Auto) 0.4 % (0.0-1.8); Eosinophils % (Auto) 1.9 % (0.0-4.3); Hematocrit 26.8 % (35.5-45.6); Mean Corpuscular HGB Conc 34 % (32-34); Mean Corpuscular Hemoglobin 32 pg (28-32); Mean Corpuscular Volume 96 fl (84-94); Platelet Count 144 K/mm3 (140-440); Red Blood Count 2.78 M/mm3 (3.65-5.03); White Blood Count 7.8 K/mm3 (4.5-11.0)
[2016-12-07 05:49] LABS: BUN/Creatinine Ratio 27.14; Calcium 8.4 mg/dL (8.4-10.2); Chloride 108.4 mmol/L (98-107); Magnesium 2.3 mg/dL (1.7-2.3); Phosphorous 4.5 mg/dL (2.5-4.5); Potassium 4.3 mmol/L (3.6-5.0)
--- NOTE | 2016-12-07 08:36 | Progress Note ---
Assessment and Plan - Patient Problems (1) MENDOZA (acute kidney injury) Current Visit: Yes Status: Acute Plan to address problem: Acute Kidney Injury superimposed on CKD stage 3, likely secondary to hemodynamic insult. Creatinine continue to improve. Hypernatremia: Improving with 1/2 NS. (2) Hyperkalemia Current Visit: Yes Status: Acute Plan to address problem: Improved. (3) Closed right hip fracture Current Visit: Yes Status: Acute Qualifiers: Encounter type: initial encounter Qualified Code(s): S72.001A - Fracture of unspecified part of neck of right femur, initial encounter for closed fracture (4) DM type 2 (diabetes mellitus, type 2) Current Visit: Yes Status: Acute (5) Acute CVA (cerebrovascular accident) Current Visit: Yes Status: Acute Plan to address problem: Followed by Neuro. Subjective Date of service: 12/07/16 Interval history: Patient is doing ok. Objective - Vital Signs Vital signs: Vital Signs - 12hr 12/06/16 12/06/16 12/06/16 21:56 22:00 22:33 Temperature 98.5 F Pulse Rate 73 66 Pulse Rate [ Anterior Bilateral Throughout] Pulse Rate [ 66 Right Dorsalis Pedis] Respiratory 17 20 Rate Respiratory Rate [Anterior Bilateral Throughout] Blood Pressure 112/56 Blood Pressure 112/56 [Right Arm] O2 Sat by Pulse 93 95 Oximetry 12/07/16 12/07/16 12/07/16 01:15 01:26 07:55 Temperature Pulse Rate Pulse Rate [ 69 74 74 Anterior Bilateral Throughout] Pulse Rate [ Right Dorsalis Pedis] Respiratory Rate Respiratory 16 18 24 Rate [Anterior Bilateral Throughout] Blood Pressure Blood Pressure [Right Arm] O2 Sat by Pulse 93 Oximetry 12/07/16 08:10 Temperature Pulse Rate Pulse Rate [ 72 Anterior Bilateral Throughout] Pulse Rate [ Right Dorsalis Pedis] Respiratory Rate Respiratory 22 Rate [Anterior Bilateral Throughout] Blood Pressure Blood Pressure [Right Arm] O2 Sat by Pulse Oximetry - General Appearance General appearance: well-developed, well-nourished, obese, frail EENT: mucous membranes dry, hearing intact Neck: supple Respiratory: Present: Clear to Ascultation Cardiology: regular, S1S2, systolic murmur Gastrointestinal: normoactive bowel sounds, no tenderness, no distended, obese Integumentary: no rash, warm and dry Neurologic: confused, other (right eye blindness) Musculoskeletal: other (swelling over the right hip area) Psychiatric: cooperative - Lab 12/07/16 05:07 12/07/16 05:07 Most recent lab results Calcium 8.4 mg/dL (8.4-10.2) 12/07/16 05:07 Phosphorus 4.5 mg/dL (2.5-4.5) 12/07/16 05:07 Magnesium 2.3 mg/dL (1.7-2.3) 12/07/16 05:07 Urine Creatinine 134.1 mg/dL (0.1-20.0) H 12/04/16 Unknown Urine Sodium 31 mEq/L 12/04/16 Unknown
[2016-12-07] MEDS: NOVOLOG SUB-Q SCH ×3 (08:51→23:55)
--- NOTE | 2016-12-07 09:36 | Query-Infection ---
"Dear Date:_12/07/16 Concreter/CDS:Cici Macias Phone#:[phone] Exercise your independent professional judgment when responding to this query. Questions asked do not imply a particular answer is desired or expected. We greatly appreciate your clarification on this issue. Clinical Documentation States: 67 Y/O Female admitted on 12/03/16 with Hx. of Lung Cancer on chemotherapy until one month ago and C. Difficile one month ago presents for recurrent diarrhea, loss of appetite and abdominal pain. Clinical findings show: (please check applicable parameters) Infection, known /suspected, with some of the following indicators; Specify the infection: Clostridium Difficile WBC: 14.5 Temp: 97.3 HR: 95 3 General parameters [ ] Fever (core temp >38.30C or 100.40F) [ ] Hypothermia (core temp <36C) [ ] Heart rate >90 bpm [ ] Tachypnea: >20 bpm or pCO2 < 32 mmHg [ ] Altered mental status [ ] Significant edema / +ve fluid balance (>20 ml/kg 24 h) [ ] Hyperglycemia (Bl. glucose >110 mg/dl) w/o diabetes Inflammatory parameters [ ] Leukocytosis (white blood cell count >12,000/l) [ ] Leukopenia (white blood cell count <4,000/l) [ ] Bandemia (immature WBC > 10%) [ ] Leucocyte Left Shift [ ] Plasma procalcitonin>2 SD above the normal value Hemodynamic and tissue perfusion parameters [ ] Arterial hypotension(SBP <90 mmHg, MAP <70 mmHg,or a SBP drop >40 mmHg in adults) [ ] Hyperlactatemia (>3 mmol/l) [ ] Anion Gap (> 11mEG/l) [ ] Decreased capillary refill or mottling Organ dysfunction parameters [ ] Arterial hypoxemia (PaO2/FIO2 <300) [ ] Creatinine increase =0.5 mg/dl [ ] Acute oliguria (urine output <0.5 ml | kg |h or 45 mM/l for at least 2 hrs) [ ] Coagulation abnormalities (INR >1.5 or activated partial thromboplastin time >60 s) [ ] Ileus (absent eric wel sounds) [ ] Thrombocytopenia (platelet count <100,000/l) [ ] Hyperbilirubinemia (plasma total bilirubin >4 mg/dl) According to the clinical indications above, can Bacteremia be further specified? If so, please indicate below and in your Progress Notes and/ or Discharge Summary. Indicate if the condition was present on admission. PHYSICIAN RESPONSE: [ ] Sepsis [ ] Severe Sepsis [ ] Septic Shock [ ] Septicemia [ ] Sepsis now resolved [ ] SIRS due to non-infectious cause with organ dysfunction [ ] SIRS due to non-infectious cause without organ dysfunction [ ] Other: [ ] Comment/Explanation: Present on Admission: [ ] Yes (Y) [ ] Clinically undeterminable (W) [ ] No ( N) [ ] Ruled Out Please also document response in your Progress Notes and/or Discharge Summary and indicate if the condition was present on admission Notes: SIRS/ SIRS WITH ORGAN DYSFUNCTION Systemic inflammatory response syndrome (SIRS) generally refers to the systemic response to trauma/martni or other insult such as Acute Myocardial Infarction, Acute Pancreatitis, and Major Surgery with symptoms including fever, tachycardia , tachypnea, and leukocytosis (1). BACTEREMIA Presence of viable bacteria in the circulating blood (2). This term is reserved for patients that do not manifest above SIRS response. SEPTICEMIA Generally refers to a systemic disease associated with the presence of pathological microorganisms or toxins in the blood, which can include bacteria, viruses, fungi or other organisms (1). SEPSIS Generally refers to SIRS due infection (1). SEVERE SEPSIS Generally refers to sepsis associated with acute organ dysfunction (1). SEPTIC SHOCK Generally refers to circulatory failure associated with severe sepsis (2), and defined as hypotension or hypoperfusion despite adequate fluid resuscitation (1 hour) (3). REFERENCES: 1. [place] [employer]/Society of Critical Care Medicine Consensus Conference. Definitions for sepsis and organ failure and guidelines for the use of innovative therapies in sepsis. Critical Care Med 1992;20:864 - 74. 2. Bala romero MM, Kiera MP, Antonio GUZMAN, Kumar E, Edward D, Isidro D, [place], Daphne SM , Richard JL, Nico G; International Sepsis Definitions Conference. 2001 SCCM/ESICM/ACCP/ATS/SIS International Sepsis Definitions Conference. Intensive Care Med. 2002;29(4):530-8. Epub 2002Feb 16. Review. PubMed PMID:[id number] 3. ICD-9-CM Official Guidelines for Coding and Reporting 4. Medscape Drugs, Diseases and Procedures references 5. Dimitry Textbook of Internal Medicine. 18th Edition MTDD"
[2016-12-07] MEDS: PERCOCET 5/325 PO PRN (10:45)
[2016-12-07] MEDS: COREG PO SCH (10:54)
[2016-12-07] MEDS: BIDIL 20/37.5MG PO SCH (10:54)
[2016-12-07] MEDS: DELTASONE PO SCH (10:55)
[2016-12-07] MEDS: NORVASC PO SCH (10:55)
[2016-12-07] MEDS: BABY ASPIRIN PO SCH (10:55)
[2016-12-07] MEDS: FLOMAX PO SCH (10:56)
[2016-12-07] MEDS: PEPCID PO SCH (10:56)
--- NOTE | 2016-12-07 12:39 | Progress Note ---
Assessment and Plan Assessment and plan: Acute hypoxic respiratory failure * Could be secondary to acute CVA * Chest x-ray did not show any acute infiltrate or aspiration * off BiPAP now, cont n/c O2 to keep o2 sat more than 94% Closed right hip intertrochanteric fracture fracture * Orthopedics reconsulted planned for surgery today * neurology cleared for surgery * hold plavix, placed on aspirin for now Hypertension, benign essential * Continue Coreg and monitor BP closely Hyperlipidemia * Continue statin Coronary artery disease * Continue aspirin, Coreg and statin Diabetes mellitus type 2 * Continue sliding scale of insulin History of BPH * Continue home meds (tamsulosin) Hyperkalemia likely due to declining renal function * Improved, we'll continue Kayexalate when necessary for potassium level more than 5.2 Acute kidney injury on CKD * likely due to dehydration/vasomotor nephropathy * Creatinine level improving * Continue IV fluid hydration, * nephrology following Altered mental status/ encephalopathy * Etiology likely due to acute to subacute CVA * We'll continue aspirin and statin for now * neurology following * PT OT eval when medically stabilized following orthopedic surgery History of GERD * Continue PPI hypernatremia: * changed iv fluid to 1/2 NS, sodium level improved today Bilateral carotid artery stenosis * Vascular surgeon recommended CT angiogram of the carotid, which should be done once renal function improves Anemia, likely due to chronic kidney disease * Continue to monitor H&H History Interval history: Patient seen and examined. Medical records and medication list reviewed. plan to have ORIF for the right hip fracture today MRI showed acute to subacute CVA on the left, neurolohy cleared for surgery Discussed plan of care at bedside with patient's family. Hospitalist Physical - Physical exam Narrative exam: GENERAL: Elderly male lying on bed appeared to be in no discomfort. Appears to be More alert today HEENT: Normocephalic. Atraumatic. No conjunctival congestion or icterus. Patient has moist mucous membranes. NECK: Supple. Trachea midline. off bipap CHEST/LUNGS: Clear to auscultated bilaterally, breathing nonlabored. No wheezes crackles or rhonchi. HEART/CARDIOVASCULAR: Regular in rate and rhythm. S1 and S2 positive. ABDOMEN: Abdomen is soft, nontender. Patient has normal bowel sounds. SKIN: There is no rash. Warm and dry. NEURO: Follows simple command. dysarthric MUSCULOSKELETAL: Restricted right hip movement. EXTRIMITY: No edema, no cyanosis or clubbing. PSYCH: not agitated. - Constitutional Vitals: Temp Pulse Resp BP Pulse Ox 99.5 F 80 24 111/56 94 12/07/16 08:35 12/07/16 08:35 12/07/16 08:35 12/07/16 08:35 12/07/16 08:35 Results - Labs CBC & Chem 7: 12/07/16 05:07 12/07/16 05:07 Labs: Laboratory Last Values WBC 7.8 K/mm3 (4.5-11.0) 12/07/16 05:07 RBC 2.78 M/mm3 (3.65-5.03) L 12/07/16 05:07 Hgb 9.0 gm/dl (11.8-15.2) L 12/07/16 05:07 Hct 26.8 % (35.5-45.6) L 12/07/16 05:07 MCV 96 fl (84-94) H 12/07/16 05:07 MCH 32 pg (28-32) 12/07/16 05:07 MCHC 34 % (32-34) 12/07/16 05:07 RDW 14.0 % (13.2-15.2) 12/07/16 05:07 Plt Count 144 K/mm3 (140-440) 12/07/16 05:07 Lymph % (Auto) 15.3 % (13.4-35.0) 12/07/16 05:07 [place] % (Auto) 9.3 % (0.0-7.3) H 12/07/16 05:07 Eos % (Auto) 1.9 % (0.0-4.3) 12/07/16 05:07 Baso % (Auto) 0.4 % (0.0-1.8) 12/07/16 05:07 Lymph # 1.2 K/mm3 (1.2-5.4) 12/07/16 05:07 [place] # 0.7 K/mm3 (0.0-0.8) 12/07/16 05:07 Eos # 0.2 K/mm3 (0.0-0.4) 12/07/16 05:07 Baso # 0.0 K/mm3 (0.0-0.1) 12/07/16 05:07 Seg Neutrophils % 73.1 % (40.0-70.0) H 12/07/16 05:07 Seg Neutrophils # 5.7 K/mm3 (1.8-7.7) 12/07/16 05:07 PT 12.8 Sec. (12.2-14.9) 12/02/16 11:24 INR 0.97 (0.87-1.13) 12/02/16 11:24 APTT 24.7 Sec. (24.2-36.6) 12/02/16 11:24 POC ABG pH 7.259 (7.35-7.45) L 12/03/16 19:42 POC ABG pCO2 59.2 (35-45) H 12/03/16 19:42 POC ABG pO2 62 (80-105) L 12/03/16 19:42 POC ABG HCO3 26.5 12/03/16 19:42 POC ABG Total CO2 28 12/03/16 19:42 POC ABG O2 Sat 87 12/03/16 19:42 POC ABG Base Excess -1 12/03/16 19:42 FiO2 30 % 12/03/16 19:42 Sodium 147 mmol/L (137-145) H 12/07/16 05:07 Potassium 4.3 mmol/L (3.6-5.0) 12/07/16 05:07 Chloride 108.4 mmol/L (98-107) H 12/07/16 05:07 Carbon Dioxide 26 mmol/L (22-30) 12/07/16 05:07 Anion Gap 17 mmol/L 12/07/16 05:07 BUN 76 mg/dL (9-20) H 12/07/16 05:07 Creatinine 2.8 mg/dL (0.8-1.5) H 12/07/16 05:07 Estimated GFR 22 ml/min 12/07/16 05:07 BUN/Creatinine Ratio 27.14 % 12/07/16 05:07 Glucose 126 mg/dL (75-100) H 12/07/16 05:07 POC Glucose 128 (70-105) H 12/07/16 05:20 Calcium 8.4 mg/dL (8.4-10.2) 12/07/16 05:07 Phosphorus 4.5 mg/dL (2.5-4.5) 12/07/16 05:07 Magnesium 2.3 mg/dL (1.7-2.3) 12/07/16 05:07 Total Bilirubin 0.4 mg/dL (0.1-1.2) 12/03/16 04:49 AST 14 units/L (5-40) 12/03/16 04:49 ALT 11 units/L (7-56) 12/03/16 04:49 Alkaline Phosphatase 47 units/L (35-129) 12/03/16 04:49 Total Creatine Kinase 151 units/L (55-170) 12/04/16 06:26 Total Protein 5.9 g/dL (6.3-8.2) L 12/03/16 04:49 Albumin 3.4 g/dL (3.9-5) L 12/03/16 04:49 Albumin/Globulin Ratio 1.4 % 12/03/16 04:49 Urine Color Yellow (Yellow) 12/04/16 Unknown Urine Turbidity Clear (Clear) 12/04/16 Unknown Urine pH 5.0 (5.0-7.0) 12/04/16 Unknown Ur Specific [place] 1.014 (1.003-1.030) 12/04/16 Unknown Urine Protein <15 mg/dl mg/dL (Negative) 12/04/16 Unknown Urine Glucose (UA) Neg mg/dL (Negative) 12/04/16 Unknown Urine Ketones Neg mg/dL (Negative) 12/04/16 Unknown Urine Blood Sm (Negative) 12/04/16 Unknown Urine Nitrite Neg (Negative) 12/04/16 Unknown Urine Bilirubin Neg (Negative) 12/04/16 Unknown Urine Urobilinogen < 2.0 mg/dL (<2.0) 12/04/16 Unknown Ur Leukocyte Esterase Neg (Negative) 12/04/16 Unknown Urine WBC (Auto) 1.0 /HPF (0.0-6.0) 12/04/16 Unknown Urine RBC (Auto) < 1.0 /HPF (0.0-6.0) 12/04/16 Unknown Urine Bacteria (Auto) 1+ /HPF (Negative) 12/04/16 Unknown Urine Mucus Few /HPF 12/04/16 Unknown Urine Creatinine 134.1 mg/dL (0.1-20.0) H 12/04/16 Unknown Urine Sodium 31 mEq/L 12/04/16 Unknown
[2016-12-07] MEDS ORDERED: D5/0.45NS 1,000 ML IV SCH (13:00)
--- NOTE | 2016-12-07 14:29 | Consultation ---
History of Present Illness - Reason for Consult Consult date: 12/07/16 Carotid Stenosis with Previous Stroke - History of Present Illness This patient is an 81-year-old male that was admitted via the emergency room on 12/02/2016 after a fall which resulted in an acute right hip intertrochanteric fracture mildly displaced. He is scheduled for surgery later today. He was reported to have altered mental status which prompted an MRI, this revealed possible small acute areas to subacute ischemia in the left centrum ovale along the margin of a previous chronic focal infarction (which was demonstrated on 08/18/2016). Patient states that he's had right visual and auditory difficulties following the previous stroke. He denied any numbness or weakness to his extremities now or in the past. A carotid duplex showed 50-79% stenosis bilaterally. A vascular surgery consult is now requested to further evaluate. The patient has difficulty answering questions reliably about his past medical history. He often had to correct previous statements. Review of his medical record would suggest that he takes Plavix and simvastatin as an outpatient, the patient cannot verify this himself. 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 denies: smoking Family history: no significant family history (none listed) Medications and Allergies Allergies Allergy/AdvReac Type Severity Reaction Status Date / Time aspirin Allergy Nausea Verified 04/09/15 06:55 morphine Allergy hallucinati Verified 04/09/15 06:57 ons Home Medications Medication Instructions Recorded Confirmed Last Taken Type Clopidogrel [Plavix] 75 mg PO QDAY #30 tablet 08/28/16 12/02/16 Unknown Rx Simvastatin [Zocor TAB] 20 mg PO QHS #30 tablet 08/28/16 12/02/16 Unknown Rx glipiZIDE [glipiZIDE ER] 5 mg PO QAM #30 tab.er.24 08/28/16 12/02/16 Unknown Rx predniSONE [Deltasone] 5 mg PO QDAY tablet 08/28/16 12/02/16 Unknown Rx Carvedilol [Coreg] 6.25 mg PO BID 12/02/16 12/02/16 Unknown History Isosorb Dinit/Hydralazine HCl 1 each PO DAILY 12/02/16 12/02/16 Unknown History [Bidil Tablet] Ranitidine HCl [Acid Chief Steward/Stewardess] 150 mg PO DAILY 12/02/16 12/02/16 Unknown History Tamsulosin [Flomax] 0.4 mg PO QDAY 12/02/16 12/02/16 Unknown History amLODIPine [Norvasc] 1 tab PO DAILY 12/02/16 12/02/16 Unknown History Active Meds: Active Medications Acetaminophen (Tylenol) 650 mg PO Q4H PRN PRN Reason: Pain MILD(1-3)/Fever >100.5/CURIEL Albuterol/Ipratropium (Duoneb 0.5 Mg-3 Mg/3 Ml Soln) 1 ampul IH Q6HRT [facility] Last Admin: 12/07/16 13:25 Dose: 1 ampul Albuterol/Ipratropium (Duoneb 0.5 Mg-3 Mg/3 Ml Soln) 1 ampul IH Q3HRT PRN PRN Reason: shortness of breath Amlodipine Besylate (Norvasc) 5 mg PO DAILY [facility] Last Admin: 12/07/16 10:55 Dose: Not Given Aspirin (Baby Aspirin) 162 mg PO QDAY [facility] Last Admin: 12/07/16 10:55 Dose: Not Given Bisacodyl (Dulcolax) 10 mg OR QDAY PRN PRN Reason: Constipation unrelieved by MOM Carvedilol (Coreg) 6.25 mg PO BID [facility] Last Admin: 12/07/16 10:54 Dose: Not Given Enoxaparin Sodium (Lovenox) 30 mg SUB-Q QHS [facility] Last Admin: 12/06/16 22:33 Dose: 30 mg Famotidine (Pepcid) 20 mg PO DAILY [facility] Last Admin: 12/07/16 10:56 Dose: Not Given Dextrose/Sodium Chloride (D5/0.45ns) 1,000 mls @ 50 mls/hr IV DIRECT [facility] Insulin Aspart (Novolog) 0 units SUB-Q ACHS [facility] PRN Reason: Protocol Last Admin: 12/07/16 13:49 Dose: Not Given Isosorbide Dinitrate/Hydralazine (Bidil 20/37.5mg) 1 each PO DAILY [facility] Last Admin: 12/07/16 10:54 Dose: Not Given Lorazepam (Ativan) 1 mg IV Q3H PRN PRN Reason: Agitation Last Admin: 12/05/16 12:25 Dose: 1 mg Magnesium Hydroxide (Milk Of Magnesia) 30 ml PO Q4H PRN PRN Reason: Constipation Ondansetron HCl (Zofran) 4 mg IV Q3H PRN PRN Reason: Nausea And Vomiting Oxycodone/Acetaminophen (Percocet 5/325) 1 tab PO Q6H PRN PRN Reason: Pain, Moderate (4-6) Last Admin: 12/07/16 10:45 Dose: 1 tab Prednisone (Deltasone) 5 mg PO QDAY [facility] Last Admin: 12/07/16 10:55 Dose: Not Given Simvastatin (Zocor) 20 mg PO QHS [facility] Last Admin: 12/06/16 22:33 Dose: 20 mg Sodium Polystyrene Sulfonate (Kayexalate) 15 gm PO Q6HR PRN PRN Reason: Hyperkalemia Tamsulosin HCl (Flomax) 0.4 mg PO QDAY [facility] Last Admin: 12/07/16 10:56 Dose: Not Given Review of Systems ROS unobtainable: due to mental status Exam - Constitutional Vitals: Temp Pulse Resp BP Pulse Ox 99.5 F 68 20 111/56 94 12/07/16 08:35 12/07/16 13:35 12/07/16 13:35 12/07/16 08:35 12/07/16 08:35 General appearance: Present: no acute distress - EENT Eyes: Present: EOM intact (decreased vision right eye) ENT: hearing decreased (diminished hearing in his right ear) - Neck Neck: Present: supple - Respiratory Respiratory effort: normal - Extremities Extremities: no ischemia - Psychiatric Psychiatric: appropriate mood/affect, no intact judgment & insight, cooperative - Neurologic Neurologic: no focal deficits Results - Labs CBC & Chem 7: 12/07/16 05:07 12/07/16 05:07 Labs: Abnormal lab results 12/06/16 12/06/16 12/07/16 Range/Units 16:41 22:27 05:07 RBC 2.78 L (3.65-5.03) M/mm3 Hgb 9.0 L (11.8-15.2) gm/dl Hct 26.8 L (35.5-45.6) % MCV 96 H (84-94) fl Baker % (Auto) 9.3 H (0.0-7.3) % Seg Neutrophils % 73.1 H (40.0-70.0) % Sodium (137-145) mmol/L Chloride (98-107) mmol/L BUN (9-20) mg/dL Creatinine (0.8-1.5) mg/dL Glucose (75-100) mg/dL POC Glucose 125 H 148 H (70-105) 12/07/16 12/07/16 Range/Units 05:07 05:20 RBC (3.65-5.03) M/mm3 Hgb (11.8-15.2) gm/dl Hct (35.5-45.6) % MCV (84-94) fl Baker % (Auto) (0.0-7.3) % Seg Neutrophils % (40.0-70.0) % Sodium 147 H (137-145) mmol/L Chloride 108.4 H (98-107) mmol/L BUN 76 H (9-20) mg/dL Creatinine 2.8 H (0.8-1.5) mg/dL Glucose 126 H (75-100) mg/dL POC Glucose 128 H (70-105) Assessment and Plan This Patient presented to emergency room after a fall. He sustained a right hip fracture. He is scheduled for operative repair later today. During the course of this hospitalization he developed altered mental status. An MRI was ordered which suggested acute versus subacute ischemic changes near an area of previous stroke. A carotid duplex revealed carotid artery stenosis approximately 50-79% bilaterally. His duplex was reviewed. Would recommend CT angiogram once his acute renal failure has resolved, to further evaluate. Would recommend continuing antiplatelet and statin therapies as possible given the plans for surgery later today. - Patient Problems (1) Carotid stenosis, bilateral Current Visit: Yes Status: Acute (2) Closed right hip fracture Current Visit: Yes Status: Acute Qualifiers: Encounter type: initial encounter Qualified Code(s): S72.001A - Fracture of unspecified part of neck of right femur, initial encounter for closed fracture (3) MENDOZA (acute kidney injury) Current Visit: Yes Status: Acute (4) COPD (chronic obstructive pulmonary disease) Current Visit: No Status: Chronic Qualifiers: COPD type: chronic bronchitis Chronic bronchitis type: simple Qualified Code(s): J41.0 - Simple chronic bronchitis (5) Diabetes Current Visit: No Status: Chronic Qualifiers: Diabetes mellitus type: type 2 Diabetes mellitus complication status: with kidney complications Diabetes mellitus complication detail: with chronic kidney disease 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
[2016-12-07] MEDS ORDERED: ANCEF/STERILE WATER 2 GM/20 ML IV NR (15:00)
[2016-12-07] MEDS ORDERED: PEPCID IV NR (15:33)
[2016-12-07] MEDS ORDERED: XYLOCAINE 1% 20 mL INFILTRATI NR (16:05)
[2016-12-07] MEDS: LACTATED RINGERS 1,000 ML IV SCH (16:26)
[2016-12-07] MEDS ORDERED: MARCAINE-EPI 0.25%-1:200,000 INFILTRATI ONE (16:30)
[2016-12-07] MEDS ORDERED: DECADRON IV ONE (17:00)
[2016-12-07] MEDS ORDERED: KETALAR IV ONE (17:00)
[2016-12-07] MEDS ORDERED: VERSED ONE (17:01)
[2016-12-07] MEDS ORDERED: MARCAINE 0.25% INFILTRATI ONE (17:01)
--- NOTE | 2016-12-07 17:19 | Anesthesia Consultation ---
Anesthesia Consult and Med Hx Date of service: 12/07/16 - Airway Anesthetic Teeth Evaluation: Edentulous ROM Head & Neck: Adequate Mental/Hyoid Distance: Adequate Mallampati Class: Class II Intubation Access Assessment: Probably Good - Pre-Operative Health Status ASA Pre-Surgery Classification: ASA4 Proposed Anesthetic Plan: MAC - Pulmonary Hx Smoking: Yes SOB: Yes COPD: Yes - Cardiovascular System Hx Hypertension: Yes Hx Heart Attack/AMI: Yes ("many years ago") Hx Angina: No Hx Cardia Arrhythmia: Yes Hx Peripheral Vascular Disease: Yes - Central Nervous System CVA: Yes (CVA RIGHT SIDE WEAKNESS) Hx Psychiatric Problems: No - Gastrointestinal Hx Ulcer: Yes - Endocrine Hx Renal Disease: Yes (stage 2 CKD) Hx End Stage Renal Disease: No Hx Insulin Dependent Diabetes: Yes - Hematic Hx Anemia: Yes Hx Sickle Cell Disease: No - Other Systems Hx Alcohol Use: No Hx Substance Use: No Hx Cancer: Yes Hx Obesity: No
--- NOTE | 2016-12-07 17:20 | Anesthesia Day of Surgery ---
Anesthesia Day of Surgery - Day of Surgery Patient Examined: Yes Patient H&P Reviewed: Yes Patient is NPO: Yes Beta Blockers: No (BP WNL 12/08/16)
[2016-12-07] MEDS ORDERED: ZOFRAN ONE (17:23)
--- NOTE | 2016-12-07 17:24 | Procedure Note ---
Date of procedure: 12/07/16 Pre-op diagnosis: Right hip Intertrochanteric fracture Post-op diagnosis: same Procedure: ORIF right hip, TFNail Anesthesia: regional Surgeon: ANGELA JOHNSTON Access Database Developer: TREMAINE MAYNARD Estimated blood loss: minimal Pathology: none Specimen disposition: discarded Condition: stable Disposition: floor
[2016-12-07] MEDS ORDERED: TYLENOL #3 PO PRN (17:25)
[2016-12-07] MEDS ORDERED: ROXICODONE PO PRN (17:25)
[2016-12-07] MEDS ORDERED: NORCO 5/325 PO PRN (17:25)
[2016-12-07] MEDS ORDERED: DIPRIVAN 10 MG/ML IV ONE (17:30)
[2016-12-07] MEDS ORDERED: NACL 0.9% IR ONE (18:09)
[2016-12-07] MEDS ORDERED: NEO SYNEPHRINE ONE (18:41)
[2016-12-07] MEDS ORDERED: NACL 0.9% 100 ML ONE (18:41)
--- NOTE | 2016-12-07 19:31 | Post Anesthesia Evaluation ---
- Post Anesthesia Evaluation Patient Participated: Yes Airway Patent: Yes Stable Respiratory Function: Yes Nausea/Vomiting: No Temp > 96.8F: Yes Pain Manageable: Yes Adequeate Hydration: Yes Anesthesia Complications: No
[2016-12-07] MEDS: LOVENOX SUB-Q SCH (23:55)
[2016-12-08] MEDS: COREG PO SCH ×3 (00:38→23:11)
[2016-12-08] MEDS: ZOCOR PO SCH ×2 (00:40→22:00)
[2016-12-08] MEDS: ATIVAN IV PRN (02:13)
[2016-12-08 04:33] LABS: BUN/Creatinine Ratio 29.25; Calcium 8.5 mg/dL (8.4-10.2); Chloride 109.3 mmol/L (98-107); Potassium 4.5 mmol/L (3.6-5.0)
--- NOTE | 2016-12-08 05:30 | Progress Note ---
Assessment and Plan - Patient Problems (1) MENDOZA (acute kidney injury) Current Visit: Yes Status: Acute Plan to address problem: Acute Kidney Injury superimposed on CKD stage 3, likely secondary to hemodynamic insult. Creatinine continue to improve. Continue IV fluids. (2) Hyperkalemia Current Visit: Yes Status: Acute Plan to address problem: Improved. (3) Closed right hip fracture Current Visit: Yes Status: Acute Qualifiers: Encounter type: initial encounter Qualified Code(s): S72.001A - Fracture of unspecified part of neck of right femur, initial encounter for closed fracture Plan to address problem: S/p ORIF. (4) DM type 2 (diabetes mellitus, type 2) Current Visit: Yes Status: Acute (5) Acute CVA (cerebrovascular accident) Current Visit: Yes Status: Acute Plan to address problem: Followed by Neuro. Subjective Date of service: 12/08/16 Interval history: s/p right hip ORIF. Objective - Vital Signs Vital signs: Vital Signs - 12hr 12/07/16 12/07/16 12/07/16 19:13 19:20 19:26 Temperature 97.9 F Pulse Rate 74 82 90 Pulse Rate [ Right Dorsalis Pedis] Respiratory 19 17 20 Rate Blood Pressure 126/51 129/46 146/50 Blood Pressure [Right Arm] O2 Sat by Pulse 90 100 100 Oximetry 12/07/16 12/07/16 12/07/16 19:31 19:36 19:50 Temperature Pulse Rate 73 83 91 H Pulse Rate [ Right Dorsalis Pedis] Respiratory 19 18 15 Rate Blood Pressure 147/46 143/44 147/61 Blood Pressure [Right Arm] O2 Sat by Pulse 98 100 100 Oximetry 12/07/16 12/07/16 12/07/16 20:01 20:15 20:31 Temperature Pulse Rate 57 L 66 87 Pulse Rate [ Right Dorsalis Pedis] Respiratory 18 13 13 Rate Blood Pressure 143/46 122/55 128/54 Blood Pressure [Right Arm] O2 Sat by Pulse 100 96 82 L Oximetry 12/07/16 12/07/16 12/07/16 20:45 20:46 21:00 Temperature 98.6 F Pulse Rate 80 84 76 Pulse Rate [ Right Dorsalis Pedis] Respiratory 14 14 13 Rate Blood Pressure 134/57 128/54 130/57 Blood Pressure [Right Arm] O2 Sat by Pulse 94 95 95 Oximetry 12/07/16 12/08/16 12/08/16 21:57 00:00 00:38 Temperature Pulse Rate 103 H 78 Pulse Rate [ Right Dorsalis Pedis] Respiratory 22 Rate Blood Pressure 136/65 Blood Pressure [Right Arm] O2 Sat by Pulse 95 98 Oximetry 12/08/16 03:56 Temperature 98.6 F Pulse Rate Pulse Rate [ 78 Right Dorsalis Pedis] Respiratory 18 Rate Blood Pressure Blood Pressure 136/65 [Right Arm] O2 Sat by Pulse 97 Oximetry - General Appearance General appearance: well-developed, obese, frail, other (no distress) EENT: other (right pupil dilated) Neck: supple Respiratory: Present: Clear to Ascultation Cardiology: regular, S1S2, no murmurs Gastrointestinal: normoactive bowel sounds, no tenderness, no distended Integumentary: no rash Neurologic: other (somnolent, arousable, right pupil dilated) Musculoskeletal: other (right hip area surgical dressing noted) Psychiatric: cooperative - Lab 12/07/16 05:07 12/08/16 03:47 Most recent lab results Calcium 8.5 mg/dL (8.4-10.2) 12/08/16 03:47 Phosphorus 4.5 mg/dL (2.5-4.5) 12/07/16 05:07 Magnesium 2.3 mg/dL (1.7-2.3) 12/07/16 05:07 Urine Creatinine 134.1 mg/dL (0.1-20.0) H 12/04/16 Unknown Urine Sodium 31 mEq/L 12/04/16 Unknown
[2016-12-08] MEDS: NOVOLOG SUB-Q SCH ×3 (07:30→16:45)
[2016-12-08] MEDS: DUONEB 0.5 MG-3 MG/3 ML SOLN IH SCH ×3 (07:42→20:39)
--- NOTE | 2016-12-08 08:30 | XRay Report ---
RIGHT HIP, ONE VIEW: HISTORY: Postsurgical film, right hip fracture, pain. FINDINGS: A single AP fluoroscopic image of the right hip was obtained after open reduction and internal fixation of a proximal right femur fracture. Alignment appears anatomic. Please correlate with the procedural report by Dr. Morales. IMPRESSION: Open reduction and internal fixation of the proximal right femur fracture.
--- NOTE | 2016-12-08 08:30 | XRay Report ---
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 FINDINGS: AP and frog-leg fluoroscopic image of the right hip were obtained prior to surgery. The images demonstrate a proximal right femur fracture with avulsion of the lesser trochanter. There is normal articulation at the right hip. Minimal osteoarthritic changes are noted. IMPRESSION: Proximal right femur fracture.
--- NOTE | 2016-12-08 09:37 | Vascular Lab Report ---
CAROTID DUPLEX STUDY: RIGHT PSVEDV CCA [id number] CCA DIST:[id number] ICA PROX:[id number] ICA MID:[id number] ICA DIST:8626 ECA: 146 VERT: 38 10 LEFT PSVEDV CCA PROX:[id number] CCA DIST:[id number] ICA PROX:86809 ICA MID:[id number] ICA DIST:[id number] ECA: 216 VERT: 144 43 REASON FOR EXAM: Acute CVA. COMMENTS ON THE RIGHT: Doppler frequency analysis is consistent with 50 to 79 percent diameter reduction of the internal carotid artery. Minimal amount of plaque is seen. The common carotid artery is patent. The external carotid artery is patent. The vertebral artery has antegrade flow. COMMENTS ON THE LEFT: Doppler frequency analysis is consistent with 50 to 79 percent diameter reduction of the internal carotid artery. Moderate amount of heterogenous partially calcified plaque is seen in the carotid bulb and extending into the internal carotid artery. The common carotid artery is patent. The external carotid artery is patent. The vertebral artery has antegrade flow. IMPRESSION: 50 to 79 percent diameter reduction in the internal carotid arteries bilaterally. Clinical correlation recommended. Follow-up CTA or MRA may be advised.
[2016-12-08] MEDS: NORVASC PO SCH (09:38)
[2016-12-08] MEDS: BIDIL 20/37.5MG PO SCH (10:37)
[2016-12-08] MEDS: BABY ASPIRIN PO SCH (10:58)
[2016-12-08] MEDS: DELTASONE PO SCH (10:59)
[2016-12-08] MEDS: FLOMAX PO SCH (10:59)
[2016-12-08] MEDS: PEPCID PO SCH (10:59)
--- NOTE | 2016-12-08 11:12 | Progress Note ---
Assessment and Plan Assessment and plan: 1. Acute hypoxic respiratory failure * Could be secondary to acute CVA vs acute encephalopathy * Chest x-ray did not show any acute infiltrate or aspiration * Off BiPAP now, cont n/c O2 to keep o2 sat more than 94% 2. Closed right hip intertrochanteric fracture fracture * Status post ORIF 12/07; Ortho following * Plavix on hold, placed on aspirin for now 3. Acute renal failure superimposed on CKD * Likely due to dehydration/vasomotor nephropathy * Ultrasound with no obstruction * Creatinine level slowly improving with IV fluids * Nephrology following 4. Hyperkalemia * Likely due to declining renal function * Status post Kayexalate * Now within normal limits * Continue to monitor 5. Hypernatremia: * IV fluids changed to 1/2 NS * Monitoring 6. Acute toxic metabolic encephalopathy * Treating underlying conditions * Mental status slowly improving 7. CVA * Brain MRI showing possible small area of acute to subacute ischemia in the left centrum semiovale at the margin of the previous chronic focal infarct * On aspirin and statin; plan to change to Plavix when Ortho agrees * PT/OT eval when medically stabilized following orthopedic surgery 8. Bilateral carotid stenosis * Duplex revealed carotid stenosis 50-79% bilaterally * Vascular surgery recommended CT angiogram once his renal failure has resolved * Continue aspirin and statin 9. Coronary artery disease * Continue aspirin, statin, BB; ACEI on hold due to acute on crhonic renal failure 10. Hypertension, benign essential * Continue Coreg and monitor BP closely 11. Hyperlipidemia * Continue statin 12. Diabetes mellitus type 2 * Accu-Cheks and SSI 13. GERD * Continue PPI 14. BPH * Continue tamsulosin 15. Macrocytic anemia * Likely has a component of anemia of CKD * Check folate and B12 16. DVT prophylaxis * SCDs * Lovenox History Interval history: Mental status slightly improved per patient's son, but still confused and pain medication worsening his confusion; no specific complaints this morning Hospitalist Physical - Constitutional Vitals: Temp Pulse Resp BP Pulse Ox 98.9 F 58 L 18 113/57 97 12/08/16 07:30 12/08/16 09:38 12/08/16 08:00 12/08/16 09:38 12/08/16 08:41 General appearance: Present: no acute distress, obese - EENT Eyes: Present: PERRL, EOM intact. Absent: scleral icterus, conjunctival injection - Neck Neck: Present: supple, normal ROM. Absent: masses or JVD - Respiratory Respiratory effort: normal Respiratory: bilateral: CTA, negative: rhonchi, wheezing - Cardiovascular Rhythm: regular Heart Sounds: Present: S1 & S2. Absent: systolic murmur - Extremities Extremities: no ischemia - Abdominal General gastrointestinal: soft, non-tender, non-distended, normal bowel sounds - Integumentary Integumentary: Present: warm, dry, pale. Absent: jaundice, rash - Psychiatric Psychiatric: other (confused) - Neurologic Neurologic: moves all extremities Results - Labs CBC & Chem 7: 12/07/16 05:07 12/08/16 03:47 Labs: Laboratory Last Values WBC 7.8 K/mm3 (4.5-11.0) 12/07/16 05:07 RBC 2.78 M/mm3 (3.65-5.03) L 12/07/16 05:07 Hgb 9.0 gm/dl (11.8-15.2) L 12/07/16 05:07 Hct 26.8 % (35.5-45.6) L 12/07/16 05:07 MCV 96 fl (84-94) H 12/07/16 05:07 MCH 32 pg (28-32) 12/07/16 05:07 MCHC 34 % (32-34) 12/07/16 05:07 RDW 14.0 % (13.2-15.2) 12/07/16 05:07 Plt Count 144 K/mm3 (140-440) 12/07/16 05:07 Lymph % (Auto) 15.3 % (13.4-35.0) 12/07/16 05:07 White % (Auto) 9.3 % (0.0-7.3) H 12/07/16 05:07 Eos % (Auto) 1.9 % (0.0-4.3) 12/07/16 05:07 Baso % (Auto) 0.4 % (0.0-1.8) 12/07/16 05:07 Lymph # 1.2 K/mm3 (1.2-5.4) 12/07/16 05:07 White # 0.7 K/mm3 (0.0-0.8) 12/07/16 05:07 Eos # 0.2 K/mm3 (0.0-0.4) 12/07/16 05:07 Baso # 0.0 K/mm3 (0.0-0.1) 12/07/16 05:07 Seg Neutrophils % 73.1 % (40.0-70.0) H 12/07/16 05:07 Seg Neutrophils # 5.7 K/mm3 (1.8-7.7) 12/07/16 05:07 PT 12.8 Sec. (12.2-14.9) 12/02/16 11:24 INR 0.97 (0.87-1.13) 12/02/16 11:24 APTT 24.7 Sec. (24.2-36.6) 12/02/16 11:24 POC ABG pH 7.259 (7.35-7.45) L 12/03/16 19:42 POC ABG pCO2 59.2 (35-45) H 12/03/16 19:42 POC ABG pO2 62 (80-105) L 12/03/16 19:42 POC ABG HCO3 26.5 12/03/16 19:42 POC ABG Total CO2 28 12/03/16 19:42 POC ABG O2 Sat 87 12/03/16 19:42 POC ABG Base Excess -1 12/03/16 19:42 FiO2 30 % 12/03/16 19:42 Sodium 148 mmol/L (137-145) H 12/08/16 03:47 Potassium 4.5 mmol/L (3.6-5.0) 12/08/16 03:47 Chloride 109.3 mmol/L (98-107) H 12/08/16 03:47 Carbon Dioxide 26 mmol/L (22-30) 12/08/16 03:47 Anion Gap 17 mmol/L 12/08/16 03:47 BUN 79 mg/dL (9-20) H 12/08/16 03:47 Creatinine 2.7 mg/dL (0.8-1.5) H 12/08/16 03:47 Estimated GFR 23 ml/min 12/08/16 03:47 BUN/Creatinine Ratio 29.25 % 12/08/16 03:47 Glucose 143 mg/dL (75-100) H 12/08/16 03:47 POC Glucose 145 (70-105) H 12/08/16 00:31 Calcium 8.5 mg/dL (8.4-10.2) 12/08/16 03:47 Phosphorus 4.5 mg/dL (2.5-4.5) 12/07/16 05:07 Magnesium 2.3 mg/dL (1.7-2.3) 12/07/16 05:07 Total Bilirubin 0.4 mg/dL (0.1-1.2) 12/03/16 04:49 AST 14 units/L (5-40) 12/03/16 04:49 ALT 11 units/L (7-56) 12/03/16 04:49 Alkaline Phosphatase 47 units/L (35-129) 12/03/16 04:49 Total Creatine Kinase 151 units/L (55-170) 12/04/16 06:26 Total Protein 5.9 g/dL (6.3-8.2) L 12/03/16 04:49 Albumin 3.4 g/dL (3.9-5) L 12/03/16 04:49 Albumin/Globulin Ratio 1.4 % 12/03/16 04:49 Urine Color Yellow (Yellow) 12/04/16 Unknown Urine Turbidity Clear (Clear) 12/04/16 Unknown Urine pH 5.0 (5.0-7.0) 12/04/16 Unknown Ur Specific [place] 1.014 (1.003-1.030) 12/04/16 Unknown Urine Protein <15 mg/dl mg/dL (Negative) 12/04/16 Unknown Urine Glucose (UA) Neg mg/dL (Negative) 12/04/16 Unknown Urine Ketones Neg mg/dL (Negative) 12/04/16 Unknown Urine Blood Sm (Negative) 12/04/16 Unknown Urine Nitrite Neg (Negative) 12/04/16 Unknown Urine Bilirubin Neg (Negative) 12/04/16 Unknown Urine Urobilinogen < 2.0 mg/dL (<2.0) 12/04/16 Unknown Ur Leukocyte Esterase Neg (Negative) 12/04/16 Unknown Urine WBC (Auto) 1.0 /HPF (0.0-6.0) 12/04/16 Unknown Urine RBC (Auto) < 1.0 /HPF (0.0-6.0) 12/04/16 Unknown Urine Bacteria (Auto) 1+ /HPF (Negative) 12/04/16 Unknown Urine Mucus Few /HPF 12/04/16 Unknown Urine Creatinine 134.1 mg/dL (0.1-20.0) H 12/04/16 Unknown Urine Sodium 31 mEq/L 12/04/16 Unknown Blood Type O POSITIVE 12/07/16 16:15 Antibody Screen Negative 12/07/16 16:15
--- NOTE | 2016-12-08 16:08 | Progress Note ---
Assessment and Plan Patient was admitted with a fractured hip which has been surgically repaired. He had a recent stroke with underlying carotid artery stenosis (50-79% bilaterally). This could represent a symptomatic stenosis. Given the recent stroke, he will need further workup. Recommend CT angiogram, although this will need to be delayed until there is improvement of his acute on chronic renal failure. If he cannot get a CT angiogram then would consider MR angiogram (although this is a suboptimal study which could give less reliable results). - Patient Problems (1) Carotid stenosis, bilateral Current Visit: Yes Status: Acute (2) Closed right hip fracture Current Visit: Yes Status: Acute Qualifiers: Encounter type: initial encounter Qualified Code(s): S72.001A - Fracture of unspecified part of neck of right femur, initial encounter for closed fracture (3) MENDOZA (acute kidney injury) Current Visit: Yes Status: Acute (4) COPD (chronic obstructive pulmonary disease) Current Visit: No Status: Chronic Qualifiers: COPD type: chronic bronchitis Chronic bronchitis type: simple Qualified Code(s): J41.0 - Simple chronic bronchitis (5) Diabetes Current Visit: No Status: Chronic Qualifiers: Diabetes mellitus type: type 2 Diabetes mellitus complication status: with kidney complications Diabetes mellitus complication detail: with chronic kidney disease 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 use: without construction plumber use Chronic kidney disease stage: stage 2 (mild) Qualified Code(s): E11.22 - Type 2 diabetes mellitus with diabetic chronic kidney disease; 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 No complaints at that point. Objective - Constitutional Vitals: Vital Signs - 12hr 12/08/16 12/08/16 12/08/16 07:30 07:50 08:00 Temperature 98.9 F Pulse Rate Pulse Rate [ 64 65 Anterior Bilateral Upper Lobe] Pulse Rate [ 58 L Left Radial] Respiratory 22 Rate Respiratory 18 18 Rate [Anterior Bilateral Upper Lobe] Blood Pressure Blood Pressure 113/57 [Right Arm] O2 Sat by Pulse 97 Oximetry 12/08/16 12/08/16 12/08/16 08:25 08:41 09:37 Temperature Pulse Rate 58 L Pulse Rate [ Anterior Bilateral Upper Lobe] Pulse Rate [ Left Radial] Respiratory Rate Respiratory Rate [Anterior Bilateral Upper Lobe] Blood Pressure 113/57 Blood Pressure [Right Arm] O2 Sat by Pulse 96 97 Oximetry 12/08/16 12/08/16 12/08/16 09:38 11:28 14:00 Temperature 99 F Pulse Rate 58 L Pulse Rate [ 58 L Anterior Bilateral Upper Lobe] Pulse Rate [ 75 Left Radial] Respiratory 24 Rate Respiratory 18 Rate [Anterior Bilateral Upper Lobe] Blood Pressure 113/57 Blood Pressure 136/69 [Right Arm] O2 Sat by Pulse Oximetry 12/08/16 12/08/16 14:12 14:13 Temperature Pulse Rate Pulse Rate [ 59 L Anterior Bilateral Upper Lobe] Pulse Rate [ Left Radial] Respiratory Rate Respiratory 18 Rate [Anterior Bilateral Upper Lobe] Blood Pressure Blood Pressure [Right Arm] O2 Sat by Pulse 93 Oximetry General appearance: Present: no acute distress - EENT ENT: hearing intact - Respiratory Respiratory effort: normal Extremities: no ischemia - Neurologic Neurologic: no focal deficits - Psychiatric Psychiatric: no appropriate mood/affect (somnolent) - Labs CBC & Chem 7: 12/07/16 05:07 12/08/16 03:47 Labs: Abnormal lab results 12/07/16 12/07/16 12/07/16 Range/Units 12:00 16:20 19:30 Sodium (137-145) mmol/L Chloride (98-107) mmol/L BUN (9-20) mg/dL Creatinine (0.8-1.5) mg/dL Glucose (75-100) mg/dL POC Glucose 137 H 116 H 117 H (70-105) 12/08/16 12/08/16 12/08/16 Range/Units 00:31 03:47 07:09 Sodium 148 H (137-145) mmol/L Chloride 109.3 H (98-107) mmol/L BUN 79 H (9-20) mg/dL Creatinine 2.7 H (0.8-1.5) mg/dL Glucose 143 H (75-100) mg/dL POC Glucose 145 H 139 H (70-105) 12/08/16 12/08/16 Range/Units 11:06 15:56 Sodium (137-145) mmol/L Chloride (98-107) mmol/L BUN (9-20) mg/dL Creatinine (0.8-1.5) mg/dL Glucose (75-100) mg/dL POC Glucose 153 H 155 H (70-105)
--- NOTE | 2016-12-08 16:30 | Progress Note ---
Assessment and Plan - Patient Problems (1) Closed right hip fracture Status: Acute Qualifiers: Encounter type: initial encounter Qualified Code(s): S72.001A - Fracture of unspecified part of neck of right femur, initial encounter for closed fracture Plan to address problem: Continue with rehabilitation program, pain management, DVT prophylaxis. To be discharged to [facility]/SNF when bed available, cleared by internal medicine. Subjective Date of service: 12/08/16 Objective Vital signs: Vital Signs - 12hr 12/08/16 12/08/16 12/08/16 07:30 07:50 08:00 Temperature 98.9 F Pulse Rate Pulse Rate [ 64 65 Anterior Bilateral Upper Lobe] Pulse Rate [ 58 L Left Radial] Respiratory 22 Rate Respiratory 18 18 Rate [Anterior Bilateral Upper Lobe] Blood Pressure Blood Pressure 113/57 [Right Arm] O2 Sat by Pulse 97 Oximetry 12/08/16 12/08/16 12/08/16 08:25 08:41 09:37 Temperature Pulse Rate 58 L Pulse Rate [ Anterior Bilateral Upper Lobe] Pulse Rate [ Left Radial] Respiratory Rate Respiratory Rate [Anterior Bilateral Upper Lobe] Blood Pressure 113/57 Blood Pressure [Right Arm] O2 Sat by Pulse 96 97 Oximetry 12/08/16 12/08/16 12/08/16 09:38 11:28 14:00 Temperature 99 F Pulse Rate 58 L Pulse Rate [ 58 L Anterior Bilateral Upper Lobe] Pulse Rate [ 75 Left Radial] Respiratory 24 Rate Respiratory 18 Rate [Anterior Bilateral Upper Lobe] Blood Pressure 113/57 Blood Pressure 136/69 [Right Arm] O2 Sat by Pulse Oximetry 12/08/16 12/08/16 12/08/16 14:12 14:13 15:30 Temperature 97.7 F Pulse Rate Pulse Rate [ 59 L Anterior Bilateral Upper Lobe] Pulse Rate [ 83 Left Radial] Respiratory 18 Rate Respiratory 18 Rate [Anterior Bilateral Upper Lobe] Blood Pressure Blood Pressure 93/51 [Right Arm] O2 Sat by Pulse 93 Oximetry 12/08/16 16:15 Temperature Pulse Rate Pulse Rate [ Anterior Bilateral Upper Lobe] Pulse Rate [ Left Radial] Respiratory Rate Respiratory Rate [Anterior Bilateral Upper Lobe] Blood Pressure Blood Pressure 109/53 [Right Arm] O2 Sat by Pulse Oximetry - Labs CBC & BMP: 12/09/16 05:48 12/09/16 05:48 Labs: Abnormal lab results 12/07/16 12/07/16 12/07/16 Range/Units 12:00 16:20 19:30 Sodium (137-145) mmol/L Chloride (98-107) mmol/L BUN (9-20) mg/dL Creatinine (0.8-1.5) mg/dL Glucose (75-100) mg/dL POC Glucose 137 H 116 H 117 H (70-105) 12/08/16 12/08/16 12/08/16 Range/Units 00:31 03:47 07:09 Sodium 148 H (137-145) mmol/L Chloride 109.3 H (98-107) mmol/L BUN 79 H (9-20) mg/dL Creatinine 2.7 H (0.8-1.5) mg/dL Glucose 143 H (75-100) mg/dL POC Glucose 145 H 139 H (70-105) 12/08/16 12/08/16 Range/Units 11:06 15:56 Sodium (137-145) mmol/L Chloride (98-107) mmol/L BUN (9-20) mg/dL Creatinine (0.8-1.5) mg/dL Glucose (75-100) mg/dL POC Glucose 153 H 155 H (70-105)
[2016-12-08] MEDS ORDERED: NACL 0.9% 250ML 250 ML ONE (20:22)
[2016-12-08] MEDS ORDERED: NACL 0.9% 250ML 250 ML IV ONE (20:30)
[2016-12-08] MEDS: LOVENOX SUB-Q SCH (23:15)
[2016-12-09] MEDS: NOVOLOG SUB-Q SCH ×5 (00:46→23:06)
[2016-12-09 06:27] LABS: Basophils % (Auto) 0.2 % (0.0-1.8); Eosinophils % (Auto) 0.9 % (0.0-4.3); Hematocrit 35.1 % (35.5-45.6); Hemoglobin 10.8 gm/dl (11.8-15.2); Mean Corpuscular HGB Conc 31 % (32-34); Mean Corpuscular Hemoglobin 31 pg (28-32); Mean Corpuscular Volume 100 fl (84-94); Platelet Count 154 K/mm3 (140-440); Red Cell Distribution Width 15.4 % (13.2-15.2); White Blood Count 7.6 K/mm3 (4.5-11.0)
[2016-12-09 06:41] LABS: Albumin 2.7 g/dL (3.9-5); BUN/Creatinine Ratio 28.06; Bilirubin,Total 0.2 mg/dL (0.1-1.2); Calcium 8.6 mg/dL (8.4-10.2); Chloride 110.4 mmol/L (98-107); Total Protein 5.4 g/dL (6.3-8.2)
--- NOTE | 2016-12-09 08:07 | Progress Note ---
Assessment and Plan - Patient Problems (1) MENDOZA (acute kidney injury) Current Visit: Yes Status: Acute Plan to address problem: Acute Kidney Injury superimposed on CKD stage 3, likely secondary to hemodynamic insult. Slight increase in the creatinine level noted. Continue IV fluids. (2) Hyperkalemia Current Visit: Yes Status: Acute Plan to address problem: Improved. (3) Closed right hip fracture Current Visit: Yes Status: Acute Qualifiers: Encounter type: initial encounter Qualified Code(s): S72.001A - Fracture of unspecified part of neck of right femur, initial encounter for closed fracture (4) DM type 2 (diabetes mellitus, type 2) Current Visit: Yes Status: Acute (5) Acute CVA (cerebrovascular accident) Current Visit: Yes Status: Acute Subjective Date of service: 12/09/16 Objective - Vital Signs Vital signs: Vital Signs - 12hr 12/08/16 12/08/16 12/08/16 20:30 20:36 20:45 Temperature 98.8 F Pulse Rate Pulse Rate [ 82 Anterior Bilateral Upper Lobe] Pulse Rate [ 80 80 Right Radial] Respiratory 18 20 Rate Respiratory 22 Rate [Anterior Bilateral Upper Lobe] Blood Pressure Blood Pressure 96/48 108/54 [Right Arm] O2 Sat by Pulse 85 95 Oximetry 12/08/16 12/08/16 12/08/16 20:47 20:52 20:57 Temperature Pulse Rate 78 Pulse Rate [ 84 Anterior Bilateral Upper Lobe] Pulse Rate [ Right Radial] Respiratory 20 Rate Respiratory 20 Rate [Anterior Bilateral Upper Lobe] Blood Pressure Blood Pressure [Right Arm] O2 Sat by Pulse 99 57 L Oximetry 12/08/16 12/09/16 12/09/16 23:11 00:30 04:00 Temperature 97.5 F L 98 F Pulse Rate 84 Pulse Rate [ Anterior Bilateral Upper Lobe] Pulse Rate [ 76 52 L Right Radial] Respiratory 20 18 Rate Respiratory Rate [Anterior Bilateral Upper Lobe] Blood Pressure 100/52 Blood Pressure 117/45 114/59 [Right Arm] O2 Sat by Pulse 95 Oximetry - General Appearance General appearance: well-developed, frail, other (no distress) EENT: mucous membranes moist, hearing intact Neck: supple Respiratory: Present: Clear to Ascultation Cardiology: regular, S1S2, no murmurs Gastrointestinal: normoactive bowel sounds, no tenderness, no distended Integumentary: no rash Neurologic: confused, other (right eye blindness) Musculoskeletal: other (righ thigh dressing noted) Psychiatric: cooperative - Lab 12/09/16 05:48 12/09/16 05:48 Most recent lab results Calcium 8.6 mg/dL (8.4-10.2) 12/09/16 05:48 Phosphorus 4.5 mg/dL (2.5-4.5) 12/07/16 05:07 Magnesium 2.3 mg/dL (1.7-2.3) 12/07/16 05:07 Urine Creatinine 134.1 mg/dL (0.1-20.0) H 12/04/16 Unknown Urine Sodium 31 mEq/L 12/04/16 Unknown
[2016-12-09] MEDS: DUONEB 0.5 MG-3 MG/3 ML SOLN IH SCH ×3 (08:36→20:55)
[2016-12-09] MEDS: BABY ASPIRIN PO SCH (09:28)
[2016-12-09] MEDS: COREG PO SCH ×2 (09:28→23:58)
[2016-12-09] MEDS: BIDIL 20/37.5MG PO SCH (09:28)
[2016-12-09] MEDS: DELTASONE PO SCH (09:29)
[2016-12-09] MEDS: NORVASC PO SCH (09:29)
[2016-12-09] MEDS: PEPCID PO SCH (09:29)
[2016-12-09] MEDS: LACTATED RINGERS 1,000 ML IV SCH (09:30)
--- NOTE | 2016-12-09 09:43 | Progress Note ---
Assessment and Plan 81-year-old male with a past medical history multiple medical problems s/p TFN nailing of right hip fracture Wound good, normal leg length, normal pulses. Continue medical care. - Patient Problems (1) Closed right hip fracture Current Visit: Yes Status: Acute Qualifiers: Encounter type: initial encounter Qualified Code(s): S72.001A - Fracture of unspecified part of neck of right femur, initial encounter for closed fracture (2) Hyperkalemia Current Visit: Yes Status: Acute (3) Chronic kidney disease Current Visit: Yes Status: Chronic Qualifiers: Chronic kidney disease stage: unspecified stage Qualified Code(s): N18.9 - Chronic kidney disease, unspecified (4) Abnormality of gait following cerebrovascular accident (CVA) Current Visit: No Status: Acute Subjective Date of service: 12/09/16 Objective Vital signs: Vital Signs - 12hr 12/08/16 12/09/16 12/09/16 23:11 00:30 04:00 Temperature 97.5 F L 98 F Pulse Rate 84 Pulse Rate [ Anterior Bilateral Upper Lobe] Pulse Rate [ 76 52 L Right Radial] Respiratory 20 18 Rate Respiratory Rate [Anterior Bilateral Upper Lobe] Blood Pressure 100/52 Blood Pressure 117/45 114/59 [Right Arm] O2 Sat by Pulse 95 Oximetry 12/09/16 12/09/16 12/09/16 08:37 08:52 08:56 Temperature Pulse Rate Pulse Rate [ 82 75 Anterior Bilateral Upper Lobe] Pulse Rate [ Right Radial] Respiratory Rate Respiratory 22 22 Rate [Anterior Bilateral Upper Lobe] Blood Pressure Blood Pressure [Right Arm] O2 Sat by Pulse 95 Oximetry 12/09/16 12/09/16 12/09/16 09:28 09:29 09:30 Temperature 97.4 F L Pulse Rate 78 78 Pulse Rate [ Anterior Bilateral Upper Lobe] Pulse Rate [ 78 Right Radial] Respiratory 18 Rate Respiratory Rate [Anterior Bilateral Upper Lobe] Blood Pressure 119/54 119/54 Blood Pressure 119/54 [Right Arm] O2 Sat by Pulse 93 Oximetry - Labs CBC & BMP: 12/09/16 05:48 12/09/16 05:48 Labs: Abnormal lab results 12/08/16 12/08/16 12/08/16 Range/Units 07:09 11:06 15:56 RBC (3.65-5.03) M/mm3 Hgb (11.8-15.2) gm/dl Hct (35.5-45.6) % MCV (84-94) fl MCHC (32-34) % RDW (13.2-15.2) % Lymph % (Auto) (13.4-35.0) % [place] % (Auto) (0.0-7.3) % Lymph # (1.2-5.4) K/mm3 Seg Neutrophils % (40.0-70.0) % Sodium (137-145) mmol/L Chloride (98-107) mmol/L BUN (9-20) mg/dL Creatinine (0.8-1.5) mg/dL Glucose (75-100) mg/dL POC Glucose 139 H 153 H 155 H (70-105) Total Protein (6.3-8.2) g/dL Albumin (3.9-5) g/dL 12/08/16 12/09/16 12/09/16 Range/Units 23:46 05:48 05:48 RBC 3.50 L (3.65-5.03) M/mm3 Hgb 10.8 L (11.8-15.2) gm/dl Hct 35.1 L D (35.5-45.6) % MCV 100 H D (84-94) fl MCHC 31 L (32-34) % RDW 15.4 H (13.2-15.2) % Lymph % (Auto) 10.5 L (13.4-35.0) % [place] % (Auto) 7.5 H (0.0-7.3) % Lymph # 0.8 L (1.2-5.4) K/mm3 Seg Neutrophils % 80.9 H (40.0-70.0) % Sodium 148 H (137-145) mmol/L Chloride 110.4 H (98-107) mmol/L BUN 87 H (9-20) mg/dL Creatinine 3.1 H (0.8-1.5) mg/dL Glucose 158 H (75-100) mg/dL POC Glucose 154 H (70-105) Total Protein 5.4 L (6.3-8.2) g/dL Albumin 2.7 L (3.9-5) g/dL
[2016-12-09] MEDS: FLOMAX PO SCH (10:00)
[2016-12-09] MEDS ORDERED: NACL 0.9% 1000 ML 1,000 ML IV SCH (11:00)
--- NOTE | 2016-12-09 15:34 | Progress Note ---
Assessment and Plan Patient presented to the hospital with a hip fracture which has been surgically repaired. During the course of this admission he developed altered mental status. 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 A carotid duplex revealed 50-79% stenosis bilaterally. The ultrasound shows an irregular plaque on the left which certainly could represent a symptomatic lesion. The patient was on Plavix , aspirin, and Zocor as an outpatient. Recommended CT angiogram. Unfortunately the patient has acute on chronic renal failure, which increases the risk of contrast nephropathy. The angiogram has thus been on hold. Considered MR angiogram (although without contrast this is a suboptimal study) to further delineate the anatomy. Discussed with radiology who recommended waiting at least 2 weeks following orthopedic hardware implantation before proceeding with MRA. Suspect the patient may need a left carotid endarterectomy. Would allow the patient to recover from his hip repair/rehabilitation. We discussed the situation with his . They will follow up with our office as an outpatient after discharge from rehabilitation. He will need cardiac evaluation prior to surgery (recent procedure was performed under spinal anesthesia by report). Consider cardiology consult as an inpatient to initiate workup. - Patient Problems (1) Carotid stenosis, bilateral Current Visit: Yes Status: Acute (2) Closed right hip fracture Current Visit: Yes Status: Acute Qualifiers: Encounter type: initial encounter Qualified Code(s): S72.001A - Fracture of unspecified part of neck of right femur, initial encounter for closed fracture (3) MENDOZA (acute kidney injury) Current Visit: Yes Status: Acute (4) COPD (chronic obstructive pulmonary disease) Current Visit: No Status: Chronic Qualifiers: COPD type: chronic bronchitis Chronic bronchitis type: simple Qualified Code(s): J41.0 - Simple chronic bronchitis (5) Diabetes Current Visit: No Status: Chronic Qualifiers: Diabetes mellitus type: type 2 Diabetes mellitus complication status: with kidney complications Diabetes mellitus complication detail: with chronic kidney disease 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 He stated that he "feels rough" . He did not have specific complaints at present. He denied any new neurologic symptoms. Objective - Constitutional Vitals: Vital Signs - 12hr 12/09/16 12/09/16 12/09/16 04:00 08:37 08:52 Temperature 98 F Pulse Rate Pulse Rate [ 82 75 Anterior Bilateral Upper Lobe] Pulse Rate [ Right Dorsalis Pedis] Pulse Rate [ 52 L Right Radial] Respiratory 18 Rate Respiratory 22 22 Rate [Anterior Bilateral Upper Lobe] Blood Pressure Blood Pressure 114/59 [Right Arm] O2 Sat by Pulse Oximetry 12/09/16 12/09/16 12/09/16 08:56 09:28 09:29 Temperature Pulse Rate 78 78 Pulse Rate [ Anterior Bilateral Upper Lobe] Pulse Rate [ Right Dorsalis Pedis] Pulse Rate [ Right Radial] Respiratory Rate Respiratory Rate [Anterior Bilateral Upper Lobe] Blood Pressure 119/54 119/54 Blood Pressure [Right Arm] O2 Sat by Pulse 95 Oximetry 12/09/16 12/09/16 09:30 12:00 Temperature 97.4 F L 98.4 F Pulse Rate Pulse Rate [ Anterior Bilateral Upper Lobe] Pulse Rate [ 69 Right Dorsalis Pedis] Pulse Rate [ 78 Right Radial] Respiratory 18 18 Rate Respiratory Rate [Anterior Bilateral Upper Lobe] Blood Pressure Blood Pressure 119/54 104/54 [Right Arm] O2 Sat by Pulse 93 93 Oximetry General appearance: Present: no acute distress - EENT Eyes: EOM intact ENT: hearing intact - Neck Neck: supple - Respiratory Respiratory effort: normal (unlabored at rest but desaturated off O2 nasal cannula) - Neurologic Neurologic: no focal deficits - Psychiatric Psychiatric: appropriate mood/affect, cooperative - Labs CBC & Chem 7: 12/09/16 05:48 12/09/16 05:48 Labs: Abnormal lab results 12/08/16 12/08/16 12/09/16 Range/Units 15:56 23:46 05:48 RBC 3.50 L (3.65-5.03) M/mm3 Hgb 10.8 L (11.8-15.2) gm/dl Hct 35.1 L D (35.5-45.6) % MCV 100 H D (84-94) fl MCHC 31 L (32-34) % RDW 15.4 H (13.2-15.2) % Lymph % (Auto) 10.5 L (13.4-35.0) % [place] % (Auto) 7.5 H (0.0-7.3) % Lymph # 0.8 L (1.2-5.4) K/mm3 Seg Neutrophils % 80.9 H (40.0-70.0) % Sodium (137-145) mmol/L Chloride (98-107) mmol/L BUN (9-20) mg/dL Creatinine (0.8-1.5) mg/dL Glucose (75-100) mg/dL POC Glucose 155 H 154 H (70-105) Total Protein (6.3-8.2) g/dL Albumin (3.9-5) g/dL 12/09/16 12/09/16 12/09/16 Range/Units 05:48 08:19 11:47 RBC (3.65-5.03) M/mm3 Hgb (11.8-15.2) gm/dl Hct (35.5-45.6) % MCV (84-94) fl MCHC (32-34) % RDW (13.2-15.2) % Lymph % (Auto) (13.4-35.0) % [place] % (Auto) (0.0-7.3) % Lymph # (1.2-5.4) K/mm3 Seg Neutrophils % (40.0-70.0) % Sodium 148 H (137-145) mmol/L Chloride 110.4 H (98-107) mmol/L BUN 87 H (9-20) mg/dL Creatinine 3.1 H (0.8-1.5) mg/dL Glucose 158 H (75-100) mg/dL POC Glucose 164 H 270 H (70-105) Total Protein 5.4 L (6.3-8.2) g/dL Albumin 2.7 L (3.9-5) g/dL
--- NOTE | 2016-12-09 19:10 | Progress Note ---
Assessment and Plan Assessment and plan: 1. Acute hypoxic respiratory failure * Could be secondary to acute CVA vs acute encephalopathy * Chest x-ray did not show any acute infiltrate or aspiration * Off BiPAP, now on O2 per NC to keep sats >94% 2. Closed right hip intertrochanteric fracture fracture * Status post ORIF 12/07; Ortho following * Plavix on hold, placed on aspirin for now 3. Acute renal failure superimposed on CKD * Likely due to dehydration/vasomotor nephropathy * Ultrasound with no obstruction * Creatinine level slowly improving with IV fluids, but slight worsening today as ivf stopped overnight; restart iv fluids and recheck swallow eval in order to increase po intake * Nephrology following 4. Hyperkalemia * Likely due to declining renal function * Status post Kayexalate * Now within normal limits * Continue to monitor 5. Hypernatremia: * Na level same today (148) * Continue IV fluids * Monitoring 6. Acute toxic metabolic encephalopathy * Treating underlying conditions * Mental status slowly improving 7. CVA * Brain MRI showing possible small area of acute to subacute ischemia in the left centrum semiovale at the margin of the previous chronic focal infarct * On aspirin and statin; plan to change to Plavix when Ortho agrees * PT/OT eval when medically stabilized following orthopedic surgery 8. Bilateral carotid stenosis * Duplex revealed carotid stenosis 50-79% bilaterally * Vascular surgery recommended CT angiogram once his renal failure has resolved * Continue aspirin and statin 9. Coronary artery disease * Continue aspirin, statin, BB; ACEI on hold due to acute on chronic renal failure 10. Hypertension, benign essential * Continue Coreg and monitor BP closely 11. Hyperlipidemia * Continue statin 12. Diabetes mellitus type 2 * Accu-Cheks and SSI 13. GERD * Continue PPI 14. BPH * Continue tamsulosin 15. Macrocytic anemia * Likely has a component of anemia of CKD * Folate and B12 within normal limits * Hgb stable 16. DVT prophylaxis * SCDs * Lovenox History Interval history: mental status better, but not back to baseline, pain controlled, no complaints Hospitalist Physical - Constitutional Vitals: Temp Pulse Resp BP Pulse Ox 98.4 F 77 18 104/54 93 12/09/16 12:00 12/09/16 15:39 12/09/16 15:39 12/09/16 12:00 12/09/16 12:00 General appearance: Present: no acute distress, obese - EENT Eyes: Present: PERRL, EOM intact. Absent: scleral icterus, conjunctival injection - Neck Neck: Present: supple, normal ROM. Absent: masses or JVD - Respiratory Respiratory effort: normal Respiratory: bilateral: diminished (bibasilar), negative: rhonchi, wheezing - Cardiovascular Rhythm: regular Heart Sounds: Present: S1 & S2. Absent: systolic murmur - Extremities Extremities: no ischemia - Abdominal General gastrointestinal: soft, non-tender, non-distended, normal bowel sounds - Integumentary Integumentary: Present: warm, dry. Absent: jaundice, rash - Psychiatric Psychiatric: other (arousable to voice, confused) - Neurologic Neurologic: moves all extremities Results - Labs CBC & Chem 7: 12/09/16 05:48 12/09/16 05:48 Labs: Laboratory Last Values WBC 7.6 K/mm3 (4.5-11.0) 12/09/16 05:48 RBC 3.50 M/mm3 (3.65-5.03) L 12/09/16 05:48 Hgb 10.8 gm/dl (11.8-15.2) L 12/09/16 05:48 Hct 35.1 % (35.5-45.6) L D 12/09/16 05:48 MCV 100 fl (84-94) H D 12/09/16 05:48 MCH 31 pg (28-32) 12/09/16 05:48 MCHC 31 % (32-34) L 12/09/16 05:48 RDW 15.4 % (13.2-15.2) H 12/09/16 05:48 Plt Count 154 K/mm3 (140-440) 12/09/16 05:48 Lymph % (Auto) 10.5 % (13.4-35.0) L 12/09/16 05:48 [place] % (Auto) 7.5 % (0.0-7.3) H 12/09/16 05:48 Eos % (Auto) 0.9 % (0.0-4.3) 12/09/16 05:48 Baso % (Auto) 0.2 % (0.0-1.8) 12/09/16 05:48 Lymph # 0.8 K/mm3 (1.2-5.4) L 12/09/16 05:48 [place] # 0.6 K/mm3 (0.0-0.8) 12/09/16 05:48 Eos # 0.1 K/mm3 (0.0-0.4) 12/09/16 05:48 Baso # 0.0 K/mm3 (0.0-0.1) 12/09/16 05:48 Seg Neutrophils % 80.9 % (40.0-70.0) H 12/09/16 05:48 Seg Neutrophils # 6.2 K/mm3 (1.8-7.7) 12/09/16 05:48 PT 12.8 Sec. (12.2-14.9) 12/02/16 11:24 INR 0.97 (0.87-1.13) 12/02/16 11:24 APTT 24.7 Sec. (24.2-36.6) 12/02/16 11:24 POC ABG pH 7.259 (7.35-7.45) L 12/03/16 19:42 POC ABG pCO2 59.2 (35-45) H 12/03/16 19:42 POC ABG pO2 62 (80-105) L 12/03/16 19:42 POC ABG HCO3 26.5 12/03/16 19:42 POC ABG Total CO2 28 12/03/16 19:42 POC ABG O2 Sat 87 12/03/16 19:42 POC ABG Base Excess -1 12/03/16 19:42 FiO2 30 % 12/03/16 19:42 Sodium 148 mmol/L (137-145) H 12/09/16 05:48 Potassium 5.0 mmol/L (3.6-5.0) 12/09/16 05:48 Chloride 110.4 mmol/L (98-107) H 12/09/16 05:48 Carbon Dioxide 25 mmol/L (22-30) 12/09/16 05:48 Anion Gap 18 mmol/L 12/09/16 05:48 BUN 87 mg/dL (9-20) H 12/09/16 05:48 Creatinine 3.1 mg/dL (0.8-1.5) H 12/09/16 05:48 Estimated GFR 19 ml/min 12/09/16 05:48 BUN/Creatinine Ratio 28.06 % 12/09/16 05:48 Glucose 158 mg/dL (75-100) H 12/09/16 05:48 POC Glucose 164 (70-105) H 12/09/16 15:42 Calcium 8.6 mg/dL (8.4-10.2) 12/09/16 05:48 Phosphorus 4.5 mg/dL (2.5-4.5) 12/07/16 05:07 Magnesium 2.3 mg/dL (1.7-2.3) 12/07/16 05:07 Total Bilirubin 0.2 mg/dL (0.1-1.2) 12/09/16 05:48 AST 26 units/L (5-40) 12/09/16 05:48 ALT 10 units/L (7-56) 12/09/16 05:48 Alkaline Phosphatase 45 units/L (35-129) 12/09/16 05:48 Total Creatine Kinase 151 units/L (55-170) 12/04/16 06:26 Total Protein 5.4 g/dL (6.3-8.2) L 12/09/16 05:48 Albumin 2.7 g/dL (3.9-5) L 12/09/16 05:48 Albumin/Globulin Ratio 1.0 % 12/09/16 05:48 Vitamin B12 362.3 pg/mL (211-911) 12/09/16 05:48 Folate 9.77 ng/mL (7.3-26.0) 12/09/16 05:48 Urine Color Yellow (Yellow) 12/04/16 Unknown Urine Turbidity Clear (Clear) 12/04/16 Unknown Urine pH 5.0 (5.0-7.0) 12/04/16 Unknown Ur Specific [place] 1.014 (1.003-1.030) 12/04/16 Unknown Urine Protein <15 mg/dl mg/dL (Negative) 12/04/16 Unknown Urine Glucose (UA) Neg mg/dL (Negative) 12/04/16 Unknown Urine Ketones Neg mg/dL (Negative) 12/04/16 Unknown Urine Blood Sm (Negative) 12/04/16 Unknown Urine Nitrite Neg (Negative) 12/04/16 Unknown Urine Bilirubin Neg (Negative) 12/04/16 Unknown Urine Urobilinogen < 2.0 mg/dL (<2.0) 12/04/16 Unknown Ur Leukocyte Esterase Neg (Negative) 12/04/16 Unknown Urine WBC (Auto) 1.0 /HPF (0.0-6.0) 12/04/16 Unknown Urine RBC (Auto) < 1.0 /HPF (0.0-6.0) 12/04/16 Unknown Urine Bacteria (Auto) 1+ /HPF (Negative) 12/04/16 Unknown Urine Mucus Few /HPF 12/04/16 Unknown Urine Creatinine 134.1 mg/dL (0.1-20.0) H 12/04/16 Unknown Urine Sodium 31 mEq/L 12/04/16 Unknown Blood Type O POSITIVE 12/07/16 16:15 Antibody Screen Negative 12/07/16 16:15
[2016-12-09] MEDS: ZOCOR PO SCH (23:59)
[2016-12-09] MEDS: ATIVAN IV PRN (23:59)
[2016-12-10] MEDS: LOVENOX SUB-Q SCH
[2016-12-10 01:10] VITALS: BP 114/52
[2016-12-10] MEDS ORDERED: ADRENALIN ONE (03:55)
--- NOTE | 2016-12-10 05:13 | Event Note ---
Date: 12/10/16 CODE BLUE call, patient was found unresponsive Initial rhythm PEA, ACLS protocol was initiated 4 rounds of epinephrine was given, she did not have IV access 3 epinephrine given by the ET tube, the last was given by IV prophylaxis There is no ROSC, time of 6147
--- NOTE | 2016-12-10 09:40 | Death Summary ---
Summary - Providers Date of service: 12/10/16 Consults: 12/03/16 08:01 Consult to Physician [CONS] Routine Consulting Provider: ODESSA MERCEDES Reason For Exam: declining renal function Place consult to:: on-call nephrology/DR. MERCEDES Notified:: OFFICE Phone number called:: [phone] Was contact made?: Yes If yes, spoke with:: ROLF Time called:: 09:33 Comment:: PAT NOTIFIED 12/05/16 10:39 Consult to Physician [CONS] Routine Consulting Provider: LANCE العلي Reason For Exam: acute CVA Place consult to:: yardage control clerk neurology/ Notified:: DR. العلي Phone number called:: IN HOUSE Was contact made?: Yes If yes, spoke with:: DR. العلي Time called:: 12:25 Comment:: DR. ESTRELLA SPOKE WTIH DR. العلي Speech Therapy Evaluation and Treat [CONS] Routine Reason For Exam: acute cva 12/06/16 14:32 Consult to Physician [CONS] Routine Consulting Provider: ANGELA JOHNSTON Reason For Exam: rt hip fracture Place consult to:: ANGELA Quinonez Notified:: answering service Phone number called:: [phone] Was contact made?: Yes If yes, spoke with:: alvaro Time called:: 14:47 12/06/16 15:38 Consult to Physician [CONS] Routine Consulting Provider: GARY PRADO Reason For Exam: b/l carotid stenosis Place consult to:: yardage control clerk vascular surgeon/eric Notified:: answering service Phone number called:: [phone] Was contact made?: Yes If yes, spoke with:: compa Alex called:: 15:57 12/08/16 15:18 Physical Therapy Evaluation and Treat [CONS] Routine Comment: Reason For Exam: S/P HIP FRACTURE, POD#1 12/09/16 09:41 Consult to Wound/ET Nurse [CONS] Routine Reason For Exam: wound evaluation Attending: MATTI MCKENZIE - summary Date of admission: 12/02/16 12:20 Date of : 12/10/16 Reason for admission: fall, right hip pain Procedures/treatments rendered: Patient is a 81 years old male with multiple medical comorbidities ( CAD, HTN, DM, HPL, CVA, CKD, GERD, BPH) was admitted after sustaining a fall; diagnosed with right hip intertrochanteric closed fracture for which Ortho was consulted and underwent ORIF. His evolution was complicated by acute hypoxic respiratory failure requiring BiPAP initially, then supplemental oxygen; this could have been due to acute metabolic encephalopathy/new stroke as he was also found to have acute on chronic renal failure with uremia and electrolyte abnormalities and brain MRI showed a new area suggestive of a subacute infarct. His multiple issues have been treated appropriately and he slowly improved, but on 12/10/16 during the night found to be unresponsive; initial rhythm PEA, ACLS protocol followed, received 3 rounds of epi, was intubated, received more epi through the ETT tube, but it was no return of spontaneous circulation, so pronounced at 4:19. Final diagnosis: PEA cardiac arrest Acute respiratory failure Acute renal failure superimposed on CDK Hyperkalemia Hypernatremia Acute toxic metabolic encephalopathy Acute/subacute CVA and old CVA Bilateral carotid stenosis Coronary artery disease Hypertension Hyperlipidemia Type 2 diabetes mellitus Gastroesophageal reflux disease Benign prostatic hypertrophy Macrocytic anemia Closed right hip intertrochanteric fracture status post ORIF Pertinent studies: Hip x-ray Chest x-ray Renal ultrasound Brain MRI Bilateral carotid Doppler
[2016-12-10] MEDS: DUONEB 0.5 MG-3 MG/3 ML SOLN IH SCH (10:58)
--- NOTE | 2016-12-12 15:30 | Operative Report ---
PREOPERATIVE DIAGNOSIS: Intertrochanteric fracture of the right hip. POSTOPERATIVE DIAGNOSIS: intertrochanteric fracture of the right hip. PROCEDURE: Open reduction and internal fixation with TFN nail. SURGEON: Rafael Morales MD RAILWAY SIGNAL ELECTRICIAN: Martha Gongora RN COMPLICATIONS: None. BLOOD LOSS: 100-150 mL. PROCEDURE IN DETAIL: Once the patient was in the surgical room, a time-out was carried out to identify the patient and procedure, prepping and draping of the patient done, the patient was placed on a fracture table. The large isolation drape was used. A 15 cm incision was carried out beginning at the right ____trochanter and extended proximally. Dissection carried out to allow exposure of the trochanter and found without any problems. Fluoroscopy was then used to allow for the insertion of an awl for a guidewire into the intertrochanteric area. The guidewire was placed into the femur. Once the guidewire was in the femoral shaft, the area was enlarged with a reamer. A short nail was then inserted using a monitored pickup driver, the nail was placed in the correct position of the neck. Following this, a guidewire was drilled through the connecting arm into the medullary canal of the head. The guidewire was inserted through the three positions from the tip of the center of the head. The guidewire was then measured, following this, the area was drilled and insertion of a cross pin was done. Using the secondary guide hole and the guiding arm, a secondary screw was placed across the shaft of the femur and through the nail. The procedure was then terminated. The wound was irrigated, closed with 2-0 Vicryl, and skin clips. Compression bandage applied. The patient tolerated the procedure well. There were no complications. JOB# [id number] TRACY/NOE PRUITT
== END 2016-12-10 10:26 | DRG 480 ==
LOC: ED 09:46 → 3A 12:20 → 2B-SURG 12-07 20:23
PROVIDERS: ADMIT Internal Medicine; ATTEND Internal Medicine
PROC: 5A09557 Assistance with Respiratory Ventilation, Greater than 96 Consecutive Hours, Continuous Positive Airway Pressure (ICD-10-PCS; principal; 2016-12-03)
PROC: 4A033R1 Measurement of Arterial Saturation, Peripheral, Percutaneous Approach (ICD-10-PCS; 2016-12-03)
PROC: 0QS604Z Reposition Right Upper Femur with Internal Fixation Device, Open Approach (ICD-10-PCS; 2016-12-07)
DX: S72.141A Displaced intertrochanteric fracture of right femur, initial encounter for closed fracture (principal); N17.0 Acute kidney failure with tubular necrosis; G92 Toxic encephalopathy; J96.01 Acute respiratory failure with hypoxia; I63.9 Cerebral infarction, unspecified; I42.0 Dilated cardiomyopathy; E87.0 Hyperosmolality and hypernatremia; I69.351 Hemiplegia and hemiparesis following cerebral infarction affecting right dominant side; E87.5 Hyperkalemia; I25.10 Atherosclerotic heart disease of native coronary artery without angina pectoris; I12.9 Hypertensive chronic kidney disease with stage 1 through stage 4 chronic kidney disease, or unspecified chronic kidney disease; E11.22 Type 2 diabetes mellitus with diabetic chronic kidney disease; N40.0 Benign prostatic hyperplasia without lower urinary tract symptoms; K21.9 Gastro-esophageal reflux disease without esophagitis; W01.0XXA Fall on same level from slipping, tripping and stumbling without subsequent striking against object, initial encounter; E78.5 Hyperlipidemia, unspecified; J44.9 Chronic obstructive pulmonary disease, unspecified; R26.9 Unspecified abnormalities of gait and mobility; N18.3 Chronic kidney disease, stage 3 (moderate); E11.51 Type 2 diabetes mellitus with diabetic peripheral angiopathy without gangrene; I65.23 Occlusion and stenosis of bilateral carotid arteries; D63.1 Anemia in chronic kidney disease; D53.9 Nutritional anemia, unspecified; M06.9 Rheumatoid arthritis, unspecified; I46.9 Cardiac arrest, cause unspecified; E66.9 Obesity, unspecified; Y93.89 Activity, other specified; Y92.89 Other specified places as the place of occurrence of the external cause; Y99.8 Other external cause status; Z79.899 Other long term (current) drug therapy; Z87.891 Personal history of nicotine dependence; Z90.49 Acquired absence of other specified parts of digestive tract; Z88.6 Allergy status to analgesic agent; Z88.8 Allergy status to other drugs, medicaments and biological substances; I25.2 Old myocardial infarction; I69.322 Dysarthria following cerebral infarction; Z85.9 Personal history of malignant neoplasm, unspecified; Z78.1 Physical restraint status; Z68.33 Body mass index [BMI] 33.0-33.9, adult
CPT/HCPCS: 36415; 36600; 70551; 71010; 76770; 80048; 80053; 81001; 82550; 82570; 82607; 82747; 82803; 82962; 83735; 84100; 84300; 85025; 85610; 85730; 86850; 86900; 86901; 92950; 93880; 94640; 94660; 94760; 96361; 96374; 96375; C1713; C1769; G8996-GN; G8997-GN; G8999-GN; G9186-GN; J0171; J0610; J0690; J1100; J1170; J1650; J1815; J1940; J2060; J2250; J2370; J2405; J2704; J7030; J7050; J7120; J7512; L8699